=== PATIENT | male | born 1975 | race Caucasian/White ===

== ENCOUNTER → 2017-12-19 | Outpatient (CLI) | payer SELFPAY ==
--- NOTE | 2017-12-19 18:17 | RADIOLOGY REPORT (SQ) ---
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 TECHNIQUE: Static and realtime ji scale imaging of the scrotum and testes. Selected color Doppler and spectral images recorded to document blood flow. LIMITATIONS: Patient has a history of "Testicular tumor", but no further clinical details are provid ed. FINDINGS: RIGHT: TESTICLE: Normal size. Normal echotexture. Normal blood flow. No mass. EPIDIDYMIS: Normal. HYDROCELE OR VARICOCELE: No. HERNIA OR EXTRA-TESTICULAR MASS: No. OTHER: No other significant finding. LEFT: TESTICLE: Heterogeneous and enlarged, 7 x 3.5 x 4.2 cm. Rounded areas within suggests numerous diffu se masses. EPIDIDYMIS: Normal. HYDROCELE OR VARICOCELE: No. HERNIA OR EXTRA-TESTICULAR MASS: No. OTHER: No other significant finding. IMPRESSION: Enlarged abnormal left testicle. Limited clinical history of "Testicular tumor" . TECHNICAL DOCUMENTATION: JOB ID: [id number] [employer]- All Rights Reserved Reading location - IP/workstation name: [email or web address]
--- NOTE | 2017-12-19 18:47 | RADIOLOGY REPORT (SQ) ---
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 TECHNIQUE: CT scan of the abdomen and pelvis performed with intravenous and oral contrast using neela harjit scanning technique with dynamic intravenous contrast injection. Images reviewed with lung, soft t issue, and bone windows. Reconstructed coronal and sagittal MPR images reviewed. Delayed images for e valuation of the urinary system also acquired. All images stored on PACS. All CT scanners at this facility use dose modulation, iterative reconstruction, and/or weight based d osing when appropriate to reduce radiation dose to as low as reasonably achievable (ALARA). [facility]: Dose Right [facility]: CareDose [facility]: Dose Right [facility]: Teradose 4D [facility]: [place] CONTRAST TYPE AND DOSE: contrast/concentration: Isovue 370.00 mg/ml; Total Contrast Delivered: 97.0 ml; Total Saline Delivered: 60.0 ml RENAL FUNCTION: Creatinine 0.9 RADIATION DOSE: CT Rad equipment meets quality standard of care and radiation dose reduction techniq ues were employed. CTDIvol: 18.2 - 19.9 mGy. DLP: 2389 mGy-cm.. LIMITATIONS: Clinical history not provided. FINDINGS: LOWER CHEST: No significant findings. No nodules or infiltrates. LIVER: Normal size. No masses. No dilated ducts. SPLEEN: Normal size. No focal lesions. PANCREAS: No masses. No significant calcifications. No adjacent inflammation or peripancreatic fluid collections. Pancreatic duct not dilated. GALLBLADDER: No identified stones by CT criteria. No inflammatory changes to suggest cholecystitis. ADRENAL GLANDS: No significant masses or asymmetry. RIGHT KIDNEY AND URETER: No solid masses. No significant calcification. No hydronephrosis or hydroure ter. LEFT KIDNEY AND URETER: No solid masses. No significant calcification. No hydronephrosis or hydrouret er. AORTA AND VESSELS: No aneurysm. No dissection. Renal arteries, SMA, celiac without stenosis. RETROPERITONEUM: No retroperitoneal adenopathy, hemorrhage or masses. BOWEL AND PERITONEAL CAVITY: No obstruction. No visualized masses. No free fluid. No inflammatory ch anges or thickening of bowel wall. APPENDIX: Normal. PELVIS: No overt pelvic adenopathy or bladder pathology. Left testis is included in the field of vie w and looks enlarged and slightly dense compared to the right. Known left mass. ABDOMINAL WALL: Small umbilical fat containing hernia. No mass or bowel containing hernia. BONES: No significant or acute findings. OTHER: No other significant finding. IMPRESSION: 1. No acute or suspicious abdominopelvic abnormality. No evidence of abdominopelvic or lung base metastatic disease. 2. Abnormal left testis. This correlates with clinical history of thom ticular tumor and abnormal scrotal ultrasound also obtained at today's visit. Highly concerning for testicular malignancy. TECHNICAL DOCUMENTATION: JOB ID: [id number] Quality ID # [id number]: Final reports with documentation of one or more dose reduction techniques (e.g., Au tomated exposure control, adjustment of the mA and/or kV according to patient size, use of iterative reconstruction technique) 2010 [employer]- All Rights Reserved Reading location - IP/workstation name: [email or web address]
== END ==
LOC: RAD 17:06
PROVIDERS: ATTEND Family Medicine
DX: N44.8 Other noninflammatory disorders of the testis (principal)
CPT/HCPCS: 74177; 76870; 82565; 93976

== ENCOUNTER 2019-11-25 21:05 | Emergency (ER) | payer MEDICAID ==
--- NOTE | 2019-11-25 22:10 | RADIOLOGY REPORT (SQ) ---
EXAM DESCRIPTION: XR CHEST 1 VIEW COMPLETED DATE/TME: 11/25/2019 00:00 CLINICAL INDICATION: 44-year-old male with cough. TECHNIQUE: Single view, AP portable chest was obtained. COMPARISON: 06/16/2011. FINDINGS: Unremarkable cardiac and mediastinal silhouette. Heart size is normal. Cardiac monitoring device overlies the LEFT lower lobe. Lungs are clear without focal opacity, pneumothorax or pleural effusions. The visualized bones are within normal limits. IMPRESSION: No acute cardiopulmonary abnormalities.
[2019-11-25 22:15] LABS: A TYPE INFLUENZA AG NEGATIVE (NEGATIVE); B INFLUENZA AG NEGATIVE (NEGATIVE)
[2019-11-25 22:26] LABS: APPEARANCE,URINE CLEAR; BILIRUBIN,URINE NEGATIVE (NEGATIVE); COLOR,URINE YELLOW; GLUCOSE, URINE NEGATIVE (NEGATIVE); KETONES,URINE NEGATIVE (NEGATIVE); LEUKOCYTE ESTERASE,URINE NEGATIVE (NEGATIVE); NITRITE,URINE NEGATIVE (NEGATIVE); PROTEIN,URINE NEGATIVE (NEGATIVE); URINE SPECIFIC GRAVITY 1.018; UROBILINOGEN,URINE NEGATIVE mg/dL (<2.0)
[2019-11-25 23:55] VITALS: BP 148/97
--- NOTE | 2019-11-27 13:52 | ER Document Report ---
Entered by THA PERKINS SCRIBE 11/25/19 [id number] Acting as scribe for:BOLIVAR MEJIA DO ED General - General Chief Complaint: Flu Symptoms Stated Complaint: FLU LIKE SYMPTOMS Time Seen by Provider: 11/25/19 21:39 Primary Care Provider: HUMZA RANDOLPH MD [Primary Care Provider] - Follow up as needed Information source: Patient Notes: 44-year-old male presents to the emergency department complaining of flu-like symptoms that began 2 weeks ago. Patient states that he has not been feeling well for the past two weeks and has been feeling "feverish" for the past few days. Patient reports arm aches, tremendous fatigue and a dry cough. Patient is unsure of sick contact. Patient lives in [place] and is visiting his children in [place]. TRAVEL OUTSIDE OF THE U[place]S. 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 Past Surgical History: Reports: Hx Testicular Surgery - Left testicle removed due to cancer Review of Systems - Review of Systems Constitutional: See HPI, Fever, Other - Fatigue EENT: No symptoms reported Cardiovascular: No symptoms reported Respiratory: See HPI, Cough Gastrointestinal: No symptoms reported Genitourinary: No symptoms reported Male Genitourinary: No symptoms reported Musculoskeletal: See HPI, Other - Arm muscle aches Skin: No symptoms reported Hematologic/Lymphatic: No symptoms reported Neurological/Psychological: No symptoms reported -: Yes All other systems reviewed and negative Physical Exam - Vital signs Vitals: Temp Pulse Resp BP Pulse Ox 98.6 F 82 18 145/96 H 99 11/25/19 21:31 11/25/19 21:31 11/25/19 21:31 11/25/19 21:31 11/25/19 21:31 - Notes Notes: Physical Exam: General: Alert, appears well. HEENT: Normocephalic. Atraumatic. PERRL. Extraocular movements intact. Oropharyn x clear. Neck: Supple. Non-tender. Respiratory: No respiratory distress. Clear and equal breath sounds bilaterally. Cardiovascular: Regular rate and rhythm. Abdominal: Non-tender. No distension. Normal Bowel Sounds. Obese. Back: No gross abnormalities. Extremities: Moves all four extremities. Upper extremities: Normal inspection. Normal ROM. Lower extremities: Normal inspection. No edema. Normal ROM. Neurological: Normal cognition. AAOx4. Normal speech. Psychological: Normal affect. Normal Mood. Skin: Warm. Dry. Normal color. Course - Re-evaluation Re-evalutation: 11/25/19 22:40 MDM 44 year old male presents after traveling here from [place]. Tremendous fatigue is present and dry cough. Flu test here is negative. He is visiting children and staying here in [place]. Tells me he will be here another "week or so." He says he has a very flexible job. Discussed self quarantine and he expressed understanding. - Vital Signs Vital signs: Temp Pulse Resp BP Pulse Ox 98.6 F 82 18 145/96 H 99 11/25/19 21:31 11/25/19 21:31 11/25/19 21:31 11/25/19 21:31 11/25/19 21:31 - Diagnostic Test Radiology reviewed: Image reviewed, Reports reviewed Discharge - Discharge Clinical Impression: Viral respiratory illness, Myalgia Condition: Good Disposition: HOME, SELF-CARE Instructions: Acetaminophen, Fever ([facility]), Upper Respiratory Illness ([facility]), Viral Syndrome ([facility]) Additional Instructions: Self quarantine for 5 days or until you hear from public health regarding the results of your test. Take tylenol for pain. Return here for increasing shortness of breath or other problems or concerns. Forms: Elevated Blood Pressure, Return to Work Referrals: HUMZA RANDOLPH MD [Primary Care Provider] - Follow up as needed I personally performed the services described in the documentation, reviewed and edited the documentation which was dictated to the scribe in my presence, and it accurately records my words and actions.
== END 2019-11-25 23:54 | disposition home or self-care (01) ==
LOC: ER 21:05
DX: Z20.828 Contact with and (suspected) exposure to other viral communicable diseases (principal); M79.10 Myalgia, unspecified site; R50.9 Fever, unspecified; B34.9 Viral infection, unspecified; R53.83 Other fatigue; F17.210 Nicotine dependence, cigarettes, uncomplicated
CPT/HCPCS: 36415; 71045; 81001; 87070; 87077; 87635; 87804; 87880; 99283

== ENCOUNTER 2020-05-22 11:38 | Emergency (ER) | payer SELFPAY ==
[2020-05-22 11:47] VITALS: BP 148/104
--- NOTE | 2020-05-22 11:51 | ER Document Report ---
ED General - General Chief Complaint: High Blood Pressure Stated Complaint: HIGH BLOOD PRESSURE Time Seen by Provider: 05/22/20 11:44 Notes: Patient presents with intermittent headache and dizziness for the last month and a half. His pressures been going up to as high as 215/140. He says he is taking the blood pressure measurement every hour on his home cuff. 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 No chest pain unilateral neuro symptoms or severe headache. Pressure 148 at triage. TRAVEL OUTSIDE OF THE U[place]S. 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 Past Surgical History: Reports: Hx Testicular Surgery - Left testicle removed due to cancer Review of Systems - Review of Systems Notes: REVIEW OF SYSTEMS GEN: Denies fever, chills, weight loss ENT: Denies sore throat, nasal discharge, ear pain EYES: Denies blurry vision, eye pain, discharge CV: Denies chest pain, palpitations, edema RESP: Denies cough, shortness of breath, wheezing GI: Denies abdominal pain, nausea, vomiting, diarrhea MSK: Denies joint pain/swelling, edema, SKIN: Denies rash, skin lesions LYMPH: Denies swollen glands/lymph nodes NEURO: Dizziness PHYSICAL EXAMINATION General: No acute distress, well-nourished Head: Atraumatic, normocephalic ENT: Mouth normal, oropharynx moist, no exudates or tonsillar enlargement Eyes: Conjunctiva normal, pupils equal, lids normal Neck: No JVD, supple, no guarding CVS: Normal rate, regular rhythm, no murmurs Resp: No resp distress, equal and normal breath sounds bilaterally GI: Nondistended, soft, no tenderness to palpation, no rebound or guarding Ext: No deformities, no edema, normal range of motion in upper and lower ext Back: No CVA or midline TTP Skin: No rash, warm Lymphatic: No lymphadeopathy noted Neuro: Awake, alert. Face symmetric. GCS 15. Gait normal speech normal strength and sensation all 4 extremities. Physical Exam - Vital signs Vitals: Temp Pulse Resp BP Pulse Ox 98.2 F 68 18 148/104 H 96 05/22/20 11:44 05/22/20 11:44 05/22/20 11:44 05/22/20 11:44 05/22/20 11:44 Course - Re-evaluation Re-evalutation: 05/22/20 12:00 Minimally symptomatic untreated hypertension secondary to noncompliance Does not know the dose or the medication he was on before We will place on low moderate dose of Norvasc for temporary blood pressure control while awaiting primary care to establish cholesterol blood pressure control diabetes screening etc. No need for work-up today. I have discussed with the patient there likely diagnosis, aftercare plan, follow-up plans and my usual and customary return precautions. They verbalized understanding of this. - Vital Signs Vital signs: Temp Pulse Resp BP Pulse Ox 98.2 F 68 18 148/104 H 96 05/22/20 11:44 05/22/20 11:44 05/22/20 11:44 05/22/20 11:44 05/22/20 11:44 Discharge - Discharge Clinical Impression: High blood pressure Qualifiers: Hypertension type: unspecified Qualified Code(s): I10 - Essential (primary) hypertension Condition: Good Disposition: HOME, SELF-CARE Instructions: High Blood Pressure ([facility]) Additional Instructions: We discussed her blood pressures going up and down in a way that can be dangerous. Please do not take it every hour but you may measure it twice a day and keep a log to show to your primary care. I am going to refer you to a local primary care doctor would also like you to follow-up with someone when you get home to [place]. Return to ER for chest pain headache or strokelike symptoms including weakness on one side the other, trouble speaking or walking. Prescriptions: Amlodipine Besylate [Norvasc 10 mg Tablet] 10 mg PO DAILY #30 tablet Referrals: [facility] [Outside] - Follow up in 1 week
== END 2020-05-22 12:09 | disposition home or self-care (01) ==
LOC: ER 11:38
DX: I10 Essential (primary) hypertension (principal); R51 Headache; R42 Dizziness and giddiness
CPT/HCPCS: 99283

== ENCOUNTER 2020-06-07 18:58 | Inpatient (IN) | payer MEDICAID ==
--- NOTE | 2020-06-07 20:17 | ER Document Report ---
ED Medical Screen (RME) - General Chief Complaint: Breathing Difficulty Stated Complaint: DIFFICULTY BREATING Time Seen by Provider: 06/07/20 20:05 TRAVEL OUTSIDE OF THE U[place]S. IN LAST 30 DAYS: No - HPI Notes: 06/07/20 20:14 45-year-old male to the emergency department with complaints of acute onset of shortness of breath this afternoon just prior to arrival. 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 He states that he decided to get in his truck and come to the emergency department. He feels like the breathing has gotten a little bit better and he can actually get 3 or 4 words at a time. However he feels still pretty short of breath. He states his chest is tight and he has little bit of chest pain. He has a history of hypertension and asthma. Never been intubated or hospitalized for his asthma. He does not have an albuterol inhaler for rescue. He states sometimes his asthma gets worse when he comes down here. He denies any fevers, chills, possible COVID exposures. He has never had a history of congestive heart failure. However he does have a loop monitor because about a year ago he is experiencing episodes of syncope. On brief exam he has expiratory rales. No destinee wheezing. He is short of breath and can speak about 3-4 words before needing to catch his breath. He has no pitting edema to his legs. He is not diaphoretic. I advised charge nurse of the patient and she states he can go to bed 18. I performed a brief medical screening exam on the patient determined that the patient needs further evaluation and management by main side provider. I have placed initial orders to help expedite care. 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
[2020-06-07 21:05] LABS: ABSOLUTE BASOPHILS # (AUTO) 0.1 10^3/uL (0.0-0.2); ABSOLUTE EOSINOPHILS # (AUTO) 0.4 10^3/uL (0.0-0.6); ABSOLUTE LYMPHOCYTES (AUTO) 2.3 10^3/uL (0.5-4.7); ABSOLUTE MONOCYTES (AUTO) 1.1 10^3/uL (0.1-1.4); ABSOLUTE NEUT (AUTO) 11.8 10^3/uL (1.7-8.2); BASOPHILS % (AUTO) 0.9 % (0-2); EOSINOPHILS % (AUTO) 2.6 % (0-6); HEMATOCRIT 45.9 % (37.9-51.0); HEMOGLOBIN 16.1 g/dL (13.5-17.0); LYMPHOCYTES % (AUTO) 14.6 % (13-45); MEAN CORPUSCULAR HEMOGLOBIN 30.1 pg (27.0-33.4); MEAN CORPUSCULAR VOLUME 86 fl (80-97); MONOCYTES % (AUTO) 7.2 % (3-13); PLATELET COUNT 243 10^3/uL (150-450); RED BLOOD COUNT 5.34 10^6/uL (4.35-5.55); RED CELL DISTRIBUTION WIDTH 12.7 % (11.5-14.0); SEGMENTED NEUTROPHILS % (AUTO) 74.7 % (42-78); TOTAL CELLS COUNTED % (AUTO) 100 %; WHITE BLOOD COUNT 15.9 10^3/uL (4.0-10.5)
[2020-06-07 21:13] LABS: INTERNATIONAL RATION (INR) 0.96
[2020-06-07 21:14] LABS: PARTIAL THROMBOPLASTIN TIME 28.9 SEC (23.5-35.8)
--- NOTE | 2020-06-07 21:16 | RADIOLOGY REPORT (SQ) ---
XR CHEST 1 VIEW HISTORY: Chest pain. Shortness of breath. COMPARISON: 11/25/2019 FINDINGS: The heart size is within normal limits. There is no pulmonary vascular congestion. No consolidation, pleural effusion, or pneumothorax is seen. No acute bony findings are seen. IMPRESSION: No evidence of acute cardiopulmonary disease.
[2020-06-07 21:35] LABS: ALBUMIN 4.8 g/dL (3.5-5.0); ALKALINE PHOSPHATASE 85 U/L (38-126); ANION GAP 13 (5-19); ASPARTATE AMINO TRANSFERASE 37 U/L (17-59); BILIRUBIN,DIRECT 0.3 mg/dL (0.0-0.4); BILIRUBIN,TOTAL 0.5 mg/dL (0.2-1.3); BLOOD UREA NITROGEN 18 mg/dL (7-20); CALCIUM 10.2 mg/dL (8.4-10.2); CARBON DIOXIDE 25 mmol/L (22-30); CHLORIDE 105 mmol/L (98-107); GLUCOSE 85 mg/dL (75-110); POTASSIUM 4.4 mmol/L (3.6-5.0); TOTAL PROTEIN 8.1 g/dL (6.3-8.2)
[2020-06-07 21:46] LABS: TROPONIN I 0.078 ng/mL
--- NOTE | 2020-06-07 21:49 | EKG REPORT ---
SEVERITY:- ABNORMAL ECG - SINUS TACHYCARDIA MULTIPLE ATRIAL PREMATURE COMPLEXES : Confirmed by: Flaquita Fritz MD 07-Jun-2020 21:48:18
[2020-06-07] MEDS ORDERED: ASPIRIN 81 MG TABLET, CHEWABLE PO ONE (21:55)
[2020-06-07] MEDS ORDERED: LORAZEPAM INJ 2 MG/1 ML VIAL IV ONE (21:55)
[2020-06-07] MEDS ORDERED: NITROGLYCERIN/D5W 50 MG/250 ML RTUINJ IV PRN (21:56)
--- NOTE | 2020-06-07 22:01 | ER Document Report ---
ED General - General Chief Complaint: Shortness Of Breath Stated Complaint: DIFFICULTY BREATING Time Seen by Provider: 06/07/20 20:05 Mode of Arrival: Ambulatory Information source: Patient Notes: ED Medical Screen ([facility] notes) - General Chief Complaint: Breathing Difficulty Stated Complaint: DIFFICULTY BREATING Time Seen by Provider: 06/07/20 20:05 TRAVEL OUTSIDE OF THE [place] IN LAST 30 DAYS: No - HPI Notes: 06/07/20 20:14 45-year-old male to the emergency department with complaints of acute onset of shortness of breath this afternoon just prior to arrival. 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 He states that he decided to get in his truck and come to the emergency department. He feels like the breathing has gotten a little bit better and he can actually get 3 or 4 words at a time. However he feels still pretty short of breath. He states his chest is tight and he has little bit of chest pain. He has a history of hypertension and asthma. Never been intubated or hospitalized for his asthma. He does not have an albuterol inhaler for rescue. He states sometimes his asthma gets worse when he comes down here. He denies any fevers, chills, possible COVID exposures. He has never had a history of congestive heart failure. However he does have a loop monitor because about a year ago he is experiencing episodes of syncope. On brief exam he has expiratory rales. No destinee wheezing. He is short of breath and can speak about 3-4 words before need ing to catch his breath. He has no pitting edema to his legs. He is not diaphoretic. I advised charge nurse of the patient and she states he can go to bed 18. I performed a brief medical screening exam on the patient determined that the patient needs further evaluation and management by main side provider. I have placed initial orders to help expedite care. 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 He try to get into the shade but continued to have shortness of breath and diffuse chest pain. 2 days ago he was fishing using a net. Chest pain was quite severe. Patient reports he had 158/113 blood pressure earlier this morning and he took some blood pressure medication. He arrives today with a low blood pressure. He is a non-smoker but drinks Eleuterio [place] alcohol with a Coca-Cola and when he is at [employer] he drinks wine. He reports both mother and father are from heart problems. He reports he has some mild edema to both legs. TRAVEL OUTSIDE OF THE U[place]S. IN LAST 30 DAYS: No - HPI Onset: This afternoon Onset/Duration: Sudden, Persistent Quality of pain: Achy Severity: Mild Pain Level: 2 Associated symptoms: Shortness of breath, Sweating, Weakness Exacerbated by: Movement, Coughing, Deep breathing Relieved by: Denies Similar symptoms previously: Yes Recently seen / treated by doctor: No - Related Data Allergies/Adverse Reactions: No Known Allergies Allergy (Unverified 06/07/20 20:15) Past Medical History - General Information source: Patient - Social History Smoking Status: Former Smoker Cigarette use (# per day): No Chew tobacco use (# tins/day): No Smoking Education Provided: No Frequency of alcohol use: Occasional - Eleuterio [place] with Coca[employer]Cola on a periodic basis and when he goes to [employer] he drinks wine Family History: Reviewed & Not Pertinent Patient has suicidal ideation: No Patient has homicidal ideation: No - Past Medical History Cardiac Medical History: Reports: Hx Hypertension Pulmonary Medical History: Reports: Hx Asthma Malignancy Medical History: 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 Past Surgical History: Reports: Hx Testicular Surgery - Left testicle removed due to cancer Review of Systems - Review of Systems Constitutional: See HPI, Malaise, Weakness EENT: No symptoms reported Cardiovascular: See HPI, Chest pain, Dyspnea, Dizziness, Lightheaded, Edema Respiratory: No symptoms reported Gastrointestinal: No symptoms reported Genitourinary: No symptoms reported Male Genitourinary: No symptoms reported Musculoskeletal: No symptoms reported Skin: No symptoms reported Hematologic/Lymphatic: No symptoms reported Neurological/Psychological: See HPI, Weakness Physical Exam - Vital signs Vitals: Temp Pulse Resp BP Pulse Ox 98.4 F 122 H 20 143/90 H 97 06/07/20 19:04 06/07/20 19:04 06/07/20 19:04 06/07/20 19:04 06/07/20 19:04 Interpretation: Hypertensive, Tachypneic - General General appearance: Anxious - HEENT Head: Normocephalic, Atraumatic Eyes: Normal Pupils: PERRL Sinus: Normal Nasal: Normal Mouth/Lips: Normal Mucous membranes: Normal Pharynx: Normal Neck: Normal - Respiratory Respiratory status: Respiratory distress, Labored, Tachypnea Chest status: Tender - Tender sternal area on palpation Breath sounds: Normal Chest palpation: Normal - Cardiovascular Rhythm: Tachycardia Heart sounds: Normal auscultation Murmur: No - Abdominal Inspection: Normal Distension: No distension Bowel sounds: Normal Tenderness: Nontender Organomegaly: No organomegaly - Rectal Prostate: Other - deferred - Genitourinary Scrotum: Other - deferred - Back Back: Normal - Extremities General upper extremity: Normal inspection, Nontender, Normal color, Normal ROM, Normal temperature General lower extremity: Normal inspection, Nontender, Normal color, Normal ROM, Normal temperature, Normal weight bearing. No: Darío's sign - Neurological Neuro grossly intact: Yes Cognition: Normal Orientation: AAOx4 Jonathan Coma Scale Eye Opening: Spontaneous [place] Coma Scale Verbal: Oriented Jonathan Coma Scale Motor: Obeys Commands [place] Coma Scale Total: 15 Speech: Normal Motor strength normal: LUE, RUE, LLE, RLE Sensory: Normal - Psychological Associated symptoms: Anxious - Skin Skin Temperature: Warm Skin Moisture: Dry Skin Color: Normal Course - Vital Signs Vital signs: Temp Pulse Resp BP Pulse Ox 98.4 F 109 H 26 H 126/93 H 99 06/07/20 19:04 06/07/20 20:12 06/07/20 21:01 06/07/20 21:01 06/07/20 21:01 - Laboratory Result Diagrams: 06/07/20 20:50 06/07/20 20:50 Laboratory results interpreted by me: 06/07/20 06/07/20 06/07/20 20:50 20:50 20:50 WBC 15.9 H Absolute Neuts (auto) 11.8 H Magnesium 2.4 H TSH 5.78 H Urine Protein Urine Ketones Urine Urobilinogen 06/07/20 23:37 WBC Absolute Neuts (auto) Magnesium TSH Urine Protein 100 H Urine Ketones TRACE H Urine Urobilinogen 4.0 H - Diagnostic Test Radiology reviewed: Reports reviewed Radiology results interpreted by me: 06/08/20 00:39 CT scan with no PE inconclusive but patient has right lower lobe infiltrate. - EKG Interpretation by De EKG shows normal: Sinus rhythm Rate: Tachycardia Rhythm: NSR - Multiple atrial premature complexes and sinus tachycardia [address] elevation no ST depression no T wave depression no T wave elevation and axis within normal limits and this was read by myself. Critical Care Note - Critical Care Note Comments: I discussed with Dr. Bass at 00 40 for possible admission. He advised can test on this patient. When he saw patient at 00 50 he advised me that the patient had only been exposed to the islam people today. He Dr Bass therefore advised not doing the coronavirus COVID 19 test. Discharge - Discharge Clinical Impression: Chest pain at rest, SOB (shortness of breath), Tachycardia, Elevated troponin, Thyroid disease, COVID-19 virus test result unknown Pneumonia Qualifiers: Pneumonia type: due to unspecified organism Laterality: right Lung location: lower lobe of lung Qualified Code(s): J18.9 - Pneumonia, unspecified organism Condition: Good Disposition: ADMITTED INPATIENT Admitting Provider: Aguilar (Hospitalist) Unit Admitted: Medical Floor Additional Instructions: Transfer patient to medical floor
[2020-06-07 22:57] LABS: FREE T4 (FREE THYROXINE) 1.04 ng/dL (0.78-2.19)
[2020-06-07 23:11] LABS: THYROID STIMULATING HORMONE 5.78 uIU/mL (0.47-4.68)
[2020-06-07 23:53] LABS: AMORPHOUS SEDIMENT,URINE TRACE /HPF; APPEARANCE,URINE CLOUDY; BILIRUBIN,URINE NEGATIVE (NEGATIVE); COLOR,URINE AMBER; GLUCOSE, URINE NEGATIVE (NEGATIVE); KETONES,URINE TRACE mg/dL (NEGATIVE); LEUKOCYTE ESTERASE,URINE NEGATIVE (NEGATIVE); NITRITE,URINE NEGATIVE (NEGATIVE); PROTEIN,URINE 100 mg/dL (NEGATIVE); URINE SPECIFIC GRAVITY 1.032
[2020-06-08 00:08] LABS: URINE AMPHETAMINES SCREEN NEGATIVE; URINE BARBITURATES SCREEN NEGATIVE; URINE BENZODIAZEPINES SCREEN NEGATIVE; URINE COCAINE SCREEN NEGATIVE; URINE MARIJUANA (THC) SCREEN NEGATIVE; URINE METHADONE SCREEN NEGATIVE; URINE PHENCYCLIDINE SCREEN NEGATIVE
--- NOTE | 2020-06-08 00:18 | RADIOLOGY REPORT (SQ) ---
CLINICAL INDICATION: cp sob. . TECHNIQUE: CT arteriography was obtained of the chest with multiplanar MIP and/or 3-D angiographic reconstructions. This exam was performed according to our departmental dose-optimization program, which includes automated exposure control, adjustment of the mA and/or kV according to patient size and/or use of iterative reconstruction techniques. COMPARISON: None. CORRELATION: None. FINDINGS: Dilute and inadequate contrast bolus. Average Hounsfield unit measurement within main pulmonary artery segment of 232. Artifact from venous opacification. There is a dilute contrast bolus. Opacification of the pulmonary vasculature is in adequate. Thoracic aorta is of normal caliber. The heart is of normal size. No pericardial effusion. No bulky mediastinal adenopathy. The lungs demonstrate mild fluffy alveolar space disease right lung base the posterior costophrenic angle. Atelectasis at both lung bases. Perhaps scar. No effusion. No pneumothorax. Visualized abdominal contents are unremarkable. Visualized bones are unremarkable. IMPRESSION: Dilute contrast bolus. Examination is nondiagnostic for evaluation of pulmonary embolus. Mild fluffy alveolar space disease right lung base, perhaps infectious inflammatory. .
[2020-06-08] MEDS ORDERED: AZITHROMYCIN INJ 500 MG VIAL IV ONE (00:40)
[2020-06-08] MEDS ORDERED: CEFTRIAXONE INJ 1000 MG VIAL IV ONE (00:40)
[2020-06-08] MEDS ORDERED: HYDRALAZINE HCL INJ/PF 20 MG/1 ML SDV IV PRN (02:04)
[2020-06-08] MEDS ORDERED: ONDANSETRON HCL INJ/PF 4 MG/2 ML SDV IV PRN (02:08)
[2020-06-08] MEDS ORDERED: PROMETHAZINE HCL INJ 25 MG/1 ML VIAL IV PRN (02:08)
[2020-06-08] MEDS ORDERED: TEMAZEPAM 7.5 MG CAPSULE PO PRN (02:08)
[2020-06-08] MEDS ORDERED: ACETAMINOPHEN 325 MG TABLET PO PRN (02:08)
[2020-06-08] MEDS ORDERED: IPRATROPIUM/ALBUTEROL 0.5-2.5 MG/3 ML AMPUL NEB PRN (02:08)
--- NOTE | 2020-06-08 02:32 | PDOC H&P ---
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 Unfortunately patient is very poor historian he is stating that he was volunteering for [employer] today and he noted that his shortness of breath was getting worse to the point that he could not talk in complete sentences, and did not get better with rest, he was also having diffuse nonpruritic chest pain. He is stating that he has had shortness of breath, and wheezing for several years and went to the doctor and was given some medication that he does not take anymore, he denies ever having had any PFTs or for asthma, when asked if he has asthma or COPD says he does not know. He is also stating that he has chronic chest pain, dyspnea on exertion, orthopnea and paroxysmal nocturnal dyspnea and pillow orthopnea, lower extremity swelling and he has been using several pillows for the last couple of years, but he denies having any CAD, he does state that he has a strong family history of CAD on mother and father side. In ED a chest x-ray was negative, a follow-up CTA was inconclusive for PE but showed mild fluffy alveolar airspace disease in the right lung base likely infectious. Also noted to have leukocytosis and elevated troponins. Patient denies any exposure to anybody with upper respiratory infection or being exposed to anybody with COVID-19 infection, he is stating that this was his first time that he was volunteering for the [employer], he states that he uses facial covering when required. He denies any fever, chills, nausea, vomiting, abdominal pain, diarrhea, constipation or any urinary symptoms. Past Medical History Cardiac Medical History: Reports: Hypertension Pulmonary Medical History: Reports: Asthma Social History Smoking Status: Former Smoker Family History Family History: Reviewed & Not Pertinent Parental Family History Reviewed: Yes Children Family History Reviewed: Yes Sibling(s) Family History Reviewed.: Yes Medication/Allergy Home Medications: Amlodipine Besylate [Norvasc 10 mg Tablet] 10 mg PO DAILY #30 tablet 05/22/20 Allergies/Adverse Reactions: No Known Allergies Allergy (Unverified 06/07/20 20:15) Physical Exam Vital Signs: Temp Pulse Resp BP Pulse Ox 98.4 F 109 H 26 H 126/93 H 99 06/07/20 19:04 06/07/20 20:12 06/07/20 21:01 06/07/20 21:01 06/07/20 21:01 Intake & Output 06/06/20 06/07/20 06/08/20 06:59 06:59 06:59 Weight 119.9 kg Results Laboratory Results: 06/07/20 20:50 06/07/20 20:50 06/07/20 06/07/20 06/07/20 20:50 20:50 20:50 WBC 15.9 H RBC 5.34 Hgb 16.1 Hct 45.9 MCV 86 MCH 30.1 MCHC 35.0 RDW 12.7 Plt Count 243 Seg Neutrophils % 74.7 Sodium 143.3 Potassium 4.4 Chloride 105 Carbon Dioxide 25 Anion Gap 13 BUN 18 Creatinine 1.18 Est GFR ( Amer) > 60 Glucose 85 Calcium 10.2 Magnesium 2.4 H Total Bilirubin 0.5 AST 37 Alkaline Phosphatase 85 Total Protein 8.1 Albumin 4.8 TSH 5.78 H Free T4 1.04 Urine Color Urine Appearance Urine pH Ur Specific [place] Urine Protein Urine Glucose (UA) Urine Ketones Urine Blood Urine Nitrite Ur Leukocyte Esterase Urine WBC (Auto) Urine RBC (Auto) 06/07/20 23:37 WBC RBC Hgb Hct MCV MCH MCHC RDW Plt Count Seg Neutrophils % Sodium Potassium Chloride Carbon Dioxide Anion Gap BUN Creatinine Est GFR ( Amer) Glucose Calcium Magnesium Total Bilirubin AST Alkaline Phosphatase Total Protein Albumin TSH Free T4 Urine Color ANDRADE Urine Appearance CLOUDY Urine pH 5.0 Ur Specific [place] 1.032 Urine Protein 100 H Urine Glucose (UA) NEGATIVE Urine Ketones TRACE H Urine Blood NEGATIVE Urine Nitrite NEGATIVE Ur Leukocyte Esterase NEGATIVE Urine WBC (Auto) 4 Urine RBC (Auto) 1 06/07/20 20:50 Troponin I 0.078 NT-Pro-B Natriuret Pep 25 Impressions: Chest X-Ray 06/07/20 20:13 IMPRESSION: No evidence of acute cardiopulmonary disease. Chest/Abdomen CTA 06/07/20 21:57 IMPRESSION: Dilute contrast bolus. Examination is nondiagnostic for evaluation of pulmonary embolus. Mild fluffy alveolar space disease right lung base, perhaps infectious inflammatory. . Assessment and Plan - Diagnosis (1) Pneumonia Qualifiers: Pneumonia type: due to unspecified organism Laterality: right Lung location: lower lobe of lung Qualified Code(s): J18.9 - Pneumonia, unspecified organism Is this a current diagnosis for this admission?: Yes Plan: Likely community-acquired caused by gram-positives including Streptococcus pneumonia. Denies exposure to anybody with COVID-19 infection. Patient is stating that he wears masks when required and he was volunteering for discharge for the first time yesterday. Empiric IV antibiotics, sputum culture, blood culture, incentive spirometry, flutter valve and incentive spirometry. Follow-up sputum and blood culture. (2) Elevated troponin Is this a current diagnosis for this admission?: Yes Plan: Unfortunately very poor historian. Reports intermittent chest pain. Troponin 0.078. EKG no acute changes. Endorses family history of CAD however denies any personal history of CAD but he states that he has been having chronic intermittent chest pain, dyspnea on exertion, orthopnea, paroxysmal nocturnal pillow orthopnea and bilateral lower extremity swelling. Admit to telemetry, antiplatelets, beta-blockers, statins, lipid panel, hemoglobin A1c, sublingual nitroglycerin, IV morphine. We will consult cardiology for possible stress for further risk stratification. (3) Chronic respiratory failure Qualifiers: Respiratory failure complication: hypoxia Qualified Code(s): J96.11 - Chronic respiratory failure with hypoxia Is this a current diagnosis for this admission?: Yes Plan: Patient endorses history of chronic shortness of breath, chest pain and dyspnea on exertion and occasional wheezing. Not sure if he asthma, but has states that he was seen by for his shortness of breath and was given some medication but is stating that no PFTs or any other pulmonary testing was done. Not sure patient has history of asthma or COPD or his chronic shortness of breath and dyspnea on exertion could be explained due to underlying undiagnosed cardiovascular disease. Continue duo nebs, LABA, ICS, incentive spirometry, LABA, flutter valve. Outpatient PCP and pulmonology follow-up. (4) Hypertension Qualifiers: Hypertension type: essential hypertension Qualified Code(s): I10 - Essential (primary) hypertension Is this a current diagnosis for this admission?: Yes Plan: Resume home meds, PRN beta-blockers and IV hydralazine, adjust meds as needed. Outpatient PCP follow-up. (5) Morbid obesity Is this a current diagnosis for this admission?: Yes Plan: BMI 42.7. Diet and lifestyle modification recommended. Will obtain TSH, hemoglobin A1c and lipid panel. - Time Time Spent with patient: 35 or more minutes Medications reviewed and adjusted accordingly: Yes Anticipated Discharge Disposition: Home, Self Care Anticipated Discharge Timeframe: within 72 hours
[2020-06-08 04:37] LABS: CHOLESTEROL 142.28 mg/dL (0-200); TRIGLYCERIDES 84 mg/dL (<150)
[2020-06-08 04:48] LABS: DIRECT LDL 93 mg/dL (<100)
[2020-06-08 04:54] LABS: FREE T4 (FREE THYROXINE) 1.04 ng/dL (0.78-2.19)
[2020-06-08 05:08] LABS: THYROID STIMULATING HORMONE 4.38 uIU/mL (0.47-4.68)
[2020-06-08] MEDS: IPRATROPIUM/ALBUTEROL 0.5-2.5 MG/3 ML AMPUL NEB SCH ×3 (08:04→20:58)
[2020-06-08] MEDS: ENOXAPARIN SODIUM INJ 40 MG/0.4 ML DISP.SYRIN SUBCUT SCH (09:38)
[2020-06-08] MEDS: FAMOTIDINE 20 MG TABLET PO SCH ×2 (09:39→21:20)
[2020-06-08] MEDS: DOCUSATE SODIUM 100 MG CAPSULE PO SCH (09:39)
[2020-06-08] MEDS: METOPROLOL TARTRATE 25 MG TABLET PO SCH ×2 (09:39→21:19)
[2020-06-08] MEDS: AZITHROMYCIN 250 MG TABLET PO SCH (09:40)
--- NOTE | 2020-06-08 10:58 | PDOC PROGRESS REPORT ---
Subjective Progress Note for:: 06/08/20 Subjective:: DAMIEN THOMSON JR is a 45 year old male Past medical history of testicular cancer status post orchiectomy, questionable asthma, hypertension, morbid obesity who was admitted early this morning for sudden onset dyspnea with questionable pneumonia versus CHF. Patient was seen on morning rounds. He was found lying in bed, comfortably, on room air. He was lying right lateral with head of bed elevated approximately 30 degrees. He reports that his breathing is much improved; noted to be speaking in full sentences. He does admit to some slight shortness of breath when ambulatory to the restroom, although, patient states that this is his norm. He denies fever, chills chest discomfort, palpitations, cough, abdominal pain, nausea, vomiting, and diarrhea. No known sick contacts. Patient has no questions or concerns at this time. No concerns per nursing. Reason For Visit: ACUTE RESPIRATORY FAILUREWITH HYPOXIA,ELEVATED Physical Exam Vital Signs: Temp Pulse Resp BP Pulse Ox 97.2 F 82 18 140/86 H 97 06/08/20 07:25 06/08/20 08:04 06/08/20 08:04 06/08/20 07:25 06/08/20 08:04 Intake & Output 06/07/20 06/08/20 06/09/20 06:59 06:59 06:59 Weight 119.9 kg General appearance: PRESENT: no acute distress, cooperative, morbidly obese, well-developed, well-nourished Head exam: PRESENT: atraumatic, normocephalic Eye exam: PRESENT: conjunctiva pink, EOMI, PERRLA. ABSENT: scleral icterus Mouth exam: PRESENT: moist, tongue midline Respiratory exam: PRESENT: rhonchi - Right base, symmetrical, unlabored, other - Room air. ABSENT: rales, wheezes Cardiovascular exam: PRESENT: RRR. ABSENT: diastolic murmur, rubs, systolic murmur Pulses: PRESENT: normal dorsalis pedis pul Vascular exam: PRESENT: normal capillary refill GI/Abdominal exam: PRESENT: other - Rotund Extremities exam: PRESENT: full ROM, pedal edema - Trace bilaterally. ABSENT: calf tenderness, clubbing Musculoskeletal exam: PRESENT: ambulatory Neurological exam: PRESENT: alert, awake, oriented to person, oriented to place, oriented to time, oriented to situation, CN II-XII grossly intact. ABSENT: motor sensory deficit Psychiatric exam: PRESENT: appropriate affect, normal mood. ABSENT: homicidal ideation, suicidal ideation Skin exam: PRESENT: dry, intact, warm. ABSENT: cyanosis, rash Results Laboratory Results: 06/07/20 20:50 06/07/20 20:50 06/07/20 06/07/20 06/07/20 20:50 20:50 20:50 WBC 15.9 H RBC 5.34 Hgb 16.1 Hct 45.9 MCV 86 MCH 30.1 MCHC 35.0 RDW 12.7 Plt Count 243 Seg Neutrophils % 74.7 Sodium 143.3 Potassium 4.4 Chloride 105 Carbon Dioxide 25 Anion Gap 13 BUN 18 Creatinine 1.18 Est GFR ( Amer) > 60 Glucose 85 Calcium 10.2 Magnesium 2.4 H Total Bilirubin 0.5 AST 37 Alkaline Phosphatase 85 Total Protein 8.1 Albumin 4.8 Triglycerides Cholesterol LDL Cholesterol Direct VLDL Cholesterol HDL Cholesterol TSH 5.78 H Free T4 1.04 Urine Color Urine Appearance Urine pH Ur Specific [place] Urine Protein Urine Glucose (UA) Urine Ketones Urine Blood Urine Nitrite Ur Leukocyte Esterase Urine WBC (Auto) Urine RBC (Auto) 06/07/20 06/08/20 06/08/20 23:37 03:37 03:37 WBC RBC Hgb Hct MCV MCH MCHC RDW Plt Count Seg Neutrophils % Sodium Potassium Chloride Carbon Dioxide Anion Gap BUN Creatinine Est GFR ( Amer) Glucose Calcium Magnesium Total Bilirubin AST Alkaline Phosphatase Total Protein Albumin Triglycerides 84 Cholesterol 142.28 LDL Cholesterol Direct 93 VLDL Cholesterol 17.0 HDL Cholesterol 31 L TSH 4.38 Free T4 1.04 Urine Color ANDRADE Urine Appearance CLOUDY Urine pH 5.0 Ur Specific [place] 1.032 Urine Protein 100 H Urine Glucose (UA) NEGATIVE Urine Ketones TRACE H Urine Blood NEGATIVE Urine Nitrite NEGATIVE Ur Leukocyte Esterase NEGATIVE Urine WBC (Auto) 4 Urine RBC (Auto) 1 06/07/20 06/08/20 20:50 03:37 Troponin I 0.078 0.042 NT-Pro-B Natriuret Pep 25 Impressions: Chest X-Ray 06/07/20 20:13 IMPRESSION: No evidence of acute cardiopulmonary disease. Chest/Abdomen CTA 06/07/20 21:57 IMPRESSION: Dilute contrast bolus. Examination is nondiagnostic for evaluation of pulmonary embolus. Mild fluffy alveolar space disease right lung base, perhaps infectious inflammatory. . Assessment and Plan - Diagnosis (1) Pneumonia Qualifiers: Pneumonia type: due to unspecified organism Laterality: right Lung location: lower lobe of lung Qualified Code(s): J18.9 - Pneumonia, unspecified organism Is this a current diagnosis for this admission?: Yes Plan: Likely community-acquired caused by gram-positives including Streptococcus pneumonia. Denies exposure to anybody with COVID-19 infection. CTA chest revealed small right lower lobe consolidation; possibly infectious. Patient is afebrile, WBCs 15, with complaints of increased shortness of breath and nonproductive cough. COVID pending. Blood cultures pending. Sputum cultures pending Patient is provided supplemental oxygen as needed maintain saturations greater than 89%. Patient is empirically placed on ceftriaxone and azithromycin. Scheduled and as needed nebulizer treatments. Pulmonary toilet is encouraged with incentive spirometer, flutter valve, early ambulation. (2) Hypertensive urgency Is this a current diagnosis for this admission?: Yes Plan: Reports intermittent chest pain; possibly related to uncontrolled hypertension. Noted to have blood pressure 166/106 overnight. Troponin are trending down; 0.078-> 0.042 EKG no acute changes. Continue home dose amlodipine. Have started metoprolol 12.5 mg twice daily. Daily aspirin and statin therapy. IV hydralazine as needed. Blood pressure control. Cardiac diet education. (3) Elevated troponin Is this a current diagnosis for this admission?: Yes Plan: Unfortunately very poor historian. Reports intermittent chest pain; possibly related to uncontrolled hypertension. Noted to have blood pressure 166/106 overnight. Troponin are trending down; 0.078-> 0.042 EKG no acute changes. Endorses family history of CAD however denies any personal history of CAD but he states that he has been having chronic intermittent chest pain, dyspnea on exertion, orthopnea, paroxysmal nocturnal pillow orthopnea and bilateral lower extremity swelling. Lipid panel overall acceptable. Thyroid panel normal. A1c 5.3%. Admit to telemetry Antiplatelets, beta-blockers, statins, sublingual nitroglycerin as needed. Discussed with cardiology; no evidence of ACS or acute CHF exacerbation at this time. Appropriate for outpatient follow-up. (4) Morbid obesity Is this a current diagnosis for this admission?: Yes Plan: BMI 42.7. Lifestyle modification dietary discretion are advised. (5) SOB (shortness of breath) Is this a current diagnosis for this admission?: Yes Plan: Patient reports chronic dyspnea with activity. Likely multifactorial secondary to underlying/untreated asthma, morbid obesity, exacerbated by community-acquired pneumonia. Currently asymptomatic and maintaining oxygen saturations on room air while at rest. Further evaluation management as above. (6) Suspected COVID-19 virus infection Is this a current diagnosis for this admission?: Yes Plan: Low suspicion for chlamydia infection, however, test has already been obtained and sent out. Monitor for development of symptoms. Encourage pulmonary toilet. Isolation precautions. - Time Time Spent with patient: 25-34 minutes Medications reviewed and adjusted accordingly: Yes Anticipated Discharge Disposition: Home, Self Care Anticipated Discharge Timeframe: within 24 hours
[2020-06-08] MEDS: AMLODIPINE BESYLATE 10 MG TABLET PO SCH (11:54)
[2020-06-08] MEDS: NITROGLYCERIN 0.4 MG/TAB 25 TAB/BOTTLE SL PRN (14:36)
[2020-06-08] MEDS: CEFTRIAXONE 1 GM/D5W RTU 1 GM/50 ML RTUPB IV SCH (21:20)
[2020-06-08] MEDS: ATORVASTATIN CALCIUM 40 MG TABLET PO SCH (21:20)
[2020-06-09 06:55] LABS: ABSOLUTE BASOPHILS # (AUTO) 0.1 10^3/uL (0.0-0.2); ABSOLUTE EOSINOPHILS # (AUTO) 0.8 10^3/uL (0.0-0.6); ABSOLUTE LYMPHOCYTES (AUTO) 1.9 10^3/uL (0.5-4.7); ABSOLUTE MONOCYTES (AUTO) 0.7 10^3/uL (0.1-1.4); ABSOLUTE NEUT (AUTO) 4.5 10^3/uL (1.7-8.2); EOSINOPHILS % (AUTO) 9.4 % (0-6); HEMATOCRIT 42.3 % (37.9-51.0); HEMOGLOBIN 14.8 g/dL (13.5-17.0); LYMPHOCYTES % (AUTO) 23.8 % (13-45); MEAN CORPUSCULAR HEMOGLOBIN 30.1 pg (27.0-33.4); MEAN CORPUSCULAR HGB CONC 35.1 g/dL (32.0-36.0); MEAN CORPUSCULAR VOLUME 86 fl (80-97); MONOCYTES % (AUTO) 8.8 % (3-13); PLATELET COUNT 186 10^3/uL (150-450); RED BLOOD COUNT 4.92 10^6/uL (4.35-5.55); RED CELL DISTRIBUTION WIDTH 12.8 % (11.5-14.0); TOTAL CELLS COUNTED % (AUTO) 100 %
[2020-06-09 07:22] LABS: ALBUMIN 3.9 g/dL (3.5-5.0); ALKALINE PHOSPHATASE 70 U/L (38-126); ANION GAP 9 (5-19); ASPARTATE AMINO TRANSFERASE 32 U/L (17-59); BILIRUBIN,DIRECT 0.2 mg/dL (0.0-0.4); BILIRUBIN,TOTAL 0.6 mg/dL (0.2-1.3); BLOOD UREA NITROGEN 11 mg/dL (7-20); CALCIUM 9.3 mg/dL (8.4-10.2); CARBON DIOXIDE 26 mmol/L (22-30); CHLORIDE 104 mmol/L (98-107); GLUCOSE 110 mg/dL (75-110); POTASSIUM 4.4 mmol/L (3.6-5.0); TOTAL PROTEIN 6.8 g/dL (6.3-8.2)
[2020-06-09] MEDS: IPRATROPIUM/ALBUTEROL 0.5-2.5 MG/3 ML AMPUL NEB SCH ×3 (08:29→21:20)
[2020-06-09] MEDS: METOPROLOL TARTRATE 25 MG TABLET PO SCH ×2 (08:59→23:12)
[2020-06-09] MEDS: ENOXAPARIN SODIUM INJ 40 MG/0.4 ML DISP.SYRIN SUBCUT SCH (08:59)
[2020-06-09] MEDS: AMLODIPINE BESYLATE 10 MG TABLET PO SCH (08:59)
[2020-06-09] MEDS: AZITHROMYCIN 250 MG TABLET PO SCH (08:59)
[2020-06-09] MEDS: FAMOTIDINE 20 MG TABLET PO SCH ×2 (08:59→23:13)
[2020-06-09] MEDS: DOCUSATE SODIUM 100 MG CAPSULE PO SCH (09:00)
[2020-06-09] MEDS ORDERED: ONDANSETRON HCL INJ/PF 4 MG/2 ML SDV IV PRN (11:00)
[2020-06-09] MEDS ORDERED: PROMETHAZINE HCL INJ 25 MG/1 ML VIAL IV PRN (11:00)
--- NOTE | 2020-06-09 19:33 | PDOC PROGRESS REPORT ---
Subjective Progress Note for:: 06/09/20 Subjective:: DAMIEN THOMSON JR is a 45 year old male Past medical history of testicular cancer status post orchiectomy, questionable asthma, hypertension, morbid obesity who was admitted early this morning for sudden onset dyspnea with questionable pneumonia versus CHF. Patient was seen on evening rounds. He was found lying in bed, comfortably, on room air. He reports that his breathing is much improved; noted to be speaking in full sentences. He continues to have intermittent episodes of dyspnea. He also reports multiple additional episodes of left-sided chest discomfort, occasionally radiating to his neck and shoulder, associated with diaphoresis occurring both at rest and while ambulatory. He had an episode yesterday evening; relieved by nitroglycerin. He reports 2 more episodes today which were much more brief; lasting 2 to 3 seconds, that he did not report to nursing. Patient states these episodes are similar to what prompted him to be evaluated in the emergency department. The most severe lasting several minutes and causing him to need to sit down suddenly due to generalized weakness. He does admit to some anxiety related to his chest discomfort. He denies fever cough, abdominal pain, nausea, vomiting, and diarrhea. Patient has no questions or concerns at this time. No concerns per nursing. Reason For Visit: ACUTE RESPIRATORY FAILUREWITH HYPOXIA,ELEVATED Physical Exam Vital Signs: Temp Pulse Resp BP Pulse Ox 98.3 F 75 16 144/87 H 96 06/09/20 12:00 06/09/20 14:49 06/09/20 14:49 06/09/20 12:00 06/09/20 14:49 Intake & Output 06/08/20 06/09/20 06/10/20 06:59 06:59 06:59 Intake Total 1250 920 Balance 1250 920 Weight 119.9 kg 121.6 kg General appearance: PRESENT: no acute distress, cooperative, obese, well- developed, well-nourished Head exam: PRESENT: atraumatic, normocephalic Eye exam: PRESENT: conjunctiva pink, EOMI, PERRLA. ABSENT: scleral icterus Mouth exam: PRESENT: moist, tongue midline Respiratory exam: PRESENT: clear to auscultation vinod, symmetrical, unlabored. ABSENT: rales, rhonchi, wheezes Cardiovascular exam: PRESENT: RRR, +S1, +S2. ABSENT: diastolic murmur, rubs, systolic murmur Pulses: PRESENT: normal dorsalis pedis pul Vascular exam: PRESENT: normal capillary refill Extremities exam: PRESENT: full ROM. ABSENT: calf tenderness, clubbing, pedal edema Musculoskeletal exam: PRESENT: ambulatory Neurological exam: PRESENT: alert, awake, oriented to person, oriented to place, oriented to time, oriented to situation, CN II-XII grossly intact. ABSENT: motor sensory deficit Psychiatric exam: PRESENT: appropriate affect, normal mood. ABSENT: homicidal ideation, suicidal ideation Skin exam: PRESENT: dry, intact, warm. ABSENT: cyanosis, rash Results Laboratory Results: 06/09/20 06:05 06/09/20 06:05 06/09/20 06/09/20 06:05 06:05 WBC 8.0 RBC 4.92 Hgb 14.8 Hct 42.3 MCV 86 MCH 30.1 MCHC 35.1 RDW 12.8 Plt Count 186 Seg Neutrophils % 57.0 Sodium 138.8 Potassium 4.4 Chloride 104 Carbon Dioxide 26 Anion Gap 9 BUN 11 Creatinine 0.70 Est GFR ( Amer) > 60 Glucose 110 Calcium 9.3 Magnesium 2.2 Total Bilirubin 0.6 AST 32 Alkaline Phosphatase 70 Total Protein 6.8 Albumin 3.9 06/08/20 01:46 Blood Blood Culture (PCR) - Final Staphylococcus Species 06/07/20 06/08/20 06/08/20 20:50 03:37 09:55 Troponin I 0.078 0.042 0.015 NT-Pro-B Natriuret Pep 25 06/08/20 15:00 Troponin I < 0.012 NT-Pro-B Natriuret Pep Impressions: Chest X-Ray 06/07/20 20:13 IMPRESSION: No evidence of acute cardiopulmonary disease. Chest/Abdomen CTA 06/07/20 21:57 IMPRESSION: Dilute contrast bolus. Examination is nondiagnostic for evaluation of pulmonary embolus. Mild fluffy alveolar space disease right lung base, perhaps infectious inflammatory. . Assessment and Plan - Diagnosis (1) Chest pain Qualifiers: Chest pain type: unspecified Qualified Code(s): R07.9 - Chest pain, unspecified Is this a current diagnosis for this admission?: Yes Plan: Patient with multiple episodes of chest pain, some occurring while at rest, described as pressure/tightness to left chest, not reproducible with movement/palpation, radiating to his neck and shoulder, and occasionally associated with diaphoresis and dyspnea. Troponin are trending down; 0.078-> 0.042-> 0.012 EKG no acute changes. Endorses family history of CAD however denies any personal history of CAD but he states that he has been having chronic intermittent chest pain, dyspnea on exertion, orthopnea, paroxysmal nocturnal pillow orthopnea and bilateral lower extremity swelling. Lipid panel overall acceptable. Thyroid panel normal. A1c 5.3%. Admit to telemetry Antiplatelets, beta-blockers, statins, sublingual nitroglycerin as needed. Repeat troponin in the morning. Have reconsulted cardiology service secondary to continued episodes of chest discomfort. (2) Pneumonia Qualifiers: Pneumonia type: due to unspecified organism Laterality: right Lung location: lower lobe of lung Qualified Code(s): J18.9 - Pneumonia, unspecified organism Is this a current diagnosis for this admission?: Yes Plan: Likely community-acquired caused by gram-positives including Streptococcus pneumonia. Denies exposure to anybody with COVID-19 infection. CTA chest revealed small right lower lobe consolidation; possibly infectious. Patient is afebrile, WBCs 15, with complaints of increased shortness of breath and nonproductive cough. COVID pending. Blood cultures 1/4 bottles with gram-positive cocci Sputum cultures pending; has not been obtained. Nonproductive cough. Patient is provided supplemental oxygen as needed maintain saturations greater than 89%. Patient is empirically placed on ceftriaxone and azithromycin. Day #2 Scheduled and as needed nebulizer treatments. Pulmonary toilet is encouraged with incentive spirometer, flutter valve, early ambulation. (3) Hypertensive urgency Is this a current diagnosis for this admission?: Yes Plan: Blood pressures are much improved. Reports intermittent chest pain; possibly related to uncontrolled hypertension. Troponin are trending down; 0.078-> 0.042-> 0.012 EKG no acute changes. Continue home dose amlodipine. Have started metoprolol 25 mg twice daily. Daily aspirin and statin therapy. IV hydralazine as needed. Blood pressure control. Cardiac diet education. (4) Elevated troponin Is this a current diagnosis for this admission?: Yes Plan: Unfortunately very poor historian. Reports intermittent chest pain; possibly related to uncontrolled hypertension. Noted to have blood pressure 166/106 overnight. Troponin are trending down; 0.078-> 0.042-> 0.012 EKG no acute changes. Endorses family history of CAD however denies any personal history of CAD but he states that he has been having chronic intermittent chest pain, dyspnea on exertion, orthopnea, paroxysmal nocturnal pillow orthopnea and bilateral lower extremity swelling. Lipid panel overall acceptable. Thyroid panel normal. A1c 5.3%. Admit to telemetry Antiplatelets, beta-blockers, statins, sublingual nitroglycerin as needed. Repeat troponin in the morning. Have reconsulted cardiology service secondary to continued episodes of chest discomfort. Appropriate for outpatient follow-up. (5) Morbid obesity Is this a current diagnosis for this admission?: Yes Plan: BMI 42.7. Lifestyle modification dietary discretion are advised. (6) SOB (shortness of breath) Is this a current diagnosis for this admission?: Yes Plan: Patient reports chronic dyspnea with activity. Likely multifactorial secondary to underlying/untreated asthma, morbid obesity, exacerbated by community-acquired pneumonia. Maintaining oxygen saturations on room air while at rest. Further evaluation management as above. (7) Suspected COVID-19 virus infection Is this a current diagnosis for this admission?: Yes Plan: Low suspicion for chlamydia infection, however, test has already been obtained and sent out. Monitor for development of symptoms. Encourage pulmonary toilet. Isolation precautions. (8) Dysphasia Is this a current diagnosis for this admission?: Yes Plan: Speech therapy evaluation (9) Testicular cancer Qualifiers: Descendance of testis: unspecified Is this a current diagnosis for this admission?: Yes Plan: Patient reports history of testicular cancer status post orchiectomy. He reports that follow-up ultrasound 3 months ago showed mass to his remaining testicle. He has not had a follow-up. Have asked nursing to obtain the ultrasound report. Inpatient versus outpatient oncology follow-up. - Time Time Spent with patient: 35 or more minutes Medications reviewed and adjusted accordingly: Yes Anticipated Discharge Disposition: Home, Self Care Anticipated Discharge Timeframe: pending cardiology evaluation
[2020-06-09] MEDS: ATORVASTATIN CALCIUM 40 MG TABLET PO SCH (23:12)
[2020-06-09] MEDS: CEFTRIAXONE 1 GM/D5W RTU 1 GM/50 ML RTUPB IV SCH (23:12)
[2020-06-10 05:20] LABS: HEMATOCRIT 40.9 % (37.9-51.0); HEMOGLOBIN 14.3 g/dL (13.5-17.0); MEAN CORPUSCULAR HEMOGLOBIN 30.3 pg (27.0-33.4); MEAN CORPUSCULAR HGB CONC 34.9 g/dL (32.0-36.0); MEAN CORPUSCULAR VOLUME 87 fl (80-97); PLATELET COUNT 198 10^3/uL (150-450); RED BLOOD COUNT 4.73 10^6/uL (4.35-5.55); RED CELL DISTRIBUTION WIDTH 12.9 % (11.5-14.0); WHITE BLOOD COUNT 9.6 10^3/uL (4.0-10.5)
[2020-06-10 05:43] LABS: ANION GAP 12 (5-19); BLOOD UREA NITROGEN 11 mg/dL (7-20); CALCIUM 9.3 mg/dL (8.4-10.2); CARBON DIOXIDE 22 mmol/L (22-30); CHLORIDE 104 mmol/L (98-107); GLUCOSE 101 mg/dL (75-110); POTASSIUM 4.6 mmol/L (3.6-5.0)
[2020-06-10] MEDS: IPRATROPIUM/ALBUTEROL 0.5-2.5 MG/3 ML AMPUL NEB SCH ×3 (09:26→20:15)
[2020-06-10] MEDS: AMLODIPINE BESYLATE 10 MG TABLET PO SCH (10:32)
[2020-06-10] MEDS: AZITHROMYCIN 250 MG TABLET PO SCH (10:32)
[2020-06-10] MEDS: FAMOTIDINE 20 MG TABLET PO SCH ×2 (10:33→21:13)
[2020-06-10] MEDS: DOCUSATE SODIUM 100 MG CAPSULE PO SCH (10:33)
[2020-06-10] MEDS: ENOXAPARIN SODIUM INJ 40 MG/0.4 ML DISP.SYRIN SUBCUT SCH ×2 (10:33→10:37)
[2020-06-10] MEDS: METOPROLOL TARTRATE 25 MG TABLET PO SCH ×2 (10:33→21:13)
--- NOTE | 2020-06-10 13:03 | PDOC PROGRESS REPORT ---
Subjective Progress Note for:: 06/10/20 Subjective:: DAMIEN THOMSON JR is a 45 year old male Past medical history of testicular cancer status post orchiectomy, questionable asthma, hypertension, morbid obesity who was admitted early this morning for sudden onset dyspnea with questionable pneumonia versus CHF. Troponin 0.078>0.012. EKG no ST elevatiomn. BNP 25 He was admitted 06/08/20 for pneumonia. COVID negative. He was started on ceftri and azithro. He continued to have on and off chest pain. He was started on stat ins, metoprolol and aspirin. Cardiology was consulted. He is off oxygen saturating 98% on room air. Reason For Visit: ACUTE RESPIRATORY FAILUREWITH HYPOXIA,ELEVATED Physical Exam Vital Signs: Temp Pulse Resp BP Pulse Ox 97.6 F 71 18 144/91 H 98 06/10/20 11:03 06/10/20 11:03 06/10/20 11:03 06/10/20 11:03 06/10/20 11:03 Intake & Output 06/09/20 06/10/20 06/11/20 06:59 06:59 06:59 Intake Total 1250 920 50 Balance 1250 920 50 Weight 121.6 kg 121.6 kg General appearance: PRESENT: no acute distress Head exam: PRESENT: atraumatic, normocephalic Eye exam: PRESENT: EOMI, PERRLA Ear exam: PRESENT: normal external ear exam Mouth exam: PRESENT: moist Neck exam: PRESENT: full ROM Respiratory exam: PRESENT: clear to auscultation vinod, symmetrical, tachypnea. ABSENT: rales, wheezes Cardiovascular exam: PRESENT: RRR, +S1, +S2 Pulses: PRESENT: +2 pedal pulses bilateral GI/Abdominal exam: PRESENT: normal bowel sounds, soft. ABSENT: rebound, tenderness Extremities exam: PRESENT: full ROM Musculoskeletal exam: PRESENT: full ROM Neurological exam: PRESENT: alert, awake, oriented to person, oriented to place, oriented to time, oriented to situation Psychiatric exam: PRESENT: anxious Skin exam: PRESENT: normal color Results Laboratory Results: 06/10/20 04:24 06/10/20 04:24 06/10/20 06/10/20 04:24 04:24 WBC 9.6 RBC 4.73 Hgb 14.3 Hct 40.9 MCV 87 MCH 30.3 MCHC 34.9 RDW 12.9 Plt Count 198 Sodium 137.5 Potassium 4.6 Chloride 104 Carbon Dioxide 22 Anion Gap 12 BUN 11 Creatinine 0.69 Est GFR ( Amer) > 60 Glucose 101 Calcium 9.3 06/08/20 01:46 Blood Blood Culture (PCR) - Final Staphylococcus Species 06/07/20 06/08/20 06/08/20 20:50 03:37 09:55 Troponin I 0.078 0.042 0.015 NT-Pro-B Natriuret Pep 25 06/08/20 06/10/20 15:00 04:24 Troponin I < 0.012 < 0.012 NT-Pro-B Natriuret Pep Impressions: Chest X-Ray 06/07/20 20:13 IMPRESSION: No evidence of acute cardiopulmonary disease. Chest/Abdomen CTA 06/07/20 21:57 IMPRESSION: Dilute contrast bolus. Examination is nondiagnostic for evaluation of pulmonary embolus. Mild fluffy alveolar space disease right lung base, perhaps infectious inflammatory. . Assessment and Plan - Diagnosis (1) Pneumonia Qualifiers: Pneumonia type: due to unspecified organism Laterality: right Lung location: lower lobe of lung Qualified Code(s): J18.9 - Pneumonia, unspecified organism Is this a current diagnosis for this admission?: Yes Plan: Likely community-acquired caused by gram-positives including Streptococcus pneumonia. Denies exposure to anybody with COVID-19 infection. CTA chest revealed small right lower lobe consolidation; possibly infectious. Patient is afebrile, WBCs 15, with complaints of increased shortness of breath a nd nonproductive cough. COVID negative Blood cultures 1/4 bottles with gram-positive cocci Sputum cultures pending; has not been obtained. Nonproductive cough. Patient is empirically placed on ceftriaxone and azithromycin. Day #3 Scheduled and as needed nebulizer treatments. Pulmonary toilet is encouraged with incentive spirometer, flutter valve, early ambulation. Off o2 with minimal coughing. No SOB or desaturation when I ambulated him stable to go home with oral abx pending cardio recs. (2) Chest pain Qualifiers: Chest pain type: unspecified Qualified Code(s): R07.9 - Chest pain, unspecified Is this a current diagnosis for this admission?: Yes Plan: Patient with multiple episodes of chest pain, some occurring while at rest, described as pressure/tightness to left chest, not reproducible with movement/palpation, radiating to his neck and shoulder, and occasionally associated with diaphoresis and dyspnea. Troponin are trending down; 0.078-> 0.042-> 0.012 EKG no acute changes. Endorses family history of CAD however denies any personal history of CAD but he states that he has been having chronic intermittent chest pain, dyspnea on exertion, orthopnea, paroxysmal nocturnal pillow orthopnea and bilateral lower extremity swelling. patient has a loop recorder for 2 years because he is being worked up for syncope. Lipid panel overall acceptable. Thyroid panel normal. A1c 5.3%. ddx: stable angina or anxiety Antiplatelets, beta-blockers, statins, sublingual nitroglycerin as needed. Have reconsulted cardiology service secondary to continued episodes of chest discomfort. (3) Hypertensive urgency Is this a current diagnosis for this admission?: Yes Plan: Blood pressures are much improved. Reports intermittent chest pain; possibly related to uncontrolled hypertension. Troponin are trending down; 0.078-> 0.042-> 0.012 EKG no acute changes. Continue home dose amlodipine. Have started metoprolol 25 mg twice daily. Daily aspirin and statin therapy. IV hydralazine as needed. Blood pressure control. Cardiac diet education. (4) Elevated troponin Is this a current diagnosis for this admission?: Yes Plan: Unfortunately very poor historian. Reports intermittent chest pain; possibly related to uncontrolled hypertension. Noted to have blood pressure 166/106 overnight. Troponin are trending down; 0.078-> 0.042-> 0.012 EKG no acute changes. Endorses family history of CAD however denies any personal history of CAD but he states that he has been having chronic intermittent chest pain, dyspnea on exertion, orthopnea, paroxysmal nocturnal pillow orthopnea and bilateral lower extremity swelling. Lipid panel overall acceptable. Thyroid panel normal. A1c 5.3%. Admit to telemetry Antiplatelets, beta-blockers, statins, sublingual nitroglycerin as needed. Repeat troponin negative Have reconsulted cardiology service secondary to continued episodes of chest discomfort. Appropriate for outpatient follow-up. (5) Morbid obesity Is this a current diagnosis for this admission?: Yes Plan: BMI 42.7. Lifestyle modification dietary discretion are advised. (6) Dysphasia Is this a current diagnosis for this admission?: Yes Plan: Speech therapy evaluation recommend swallow study and GI consult outpatient as dysphagia maybe esophageal in origin - Time Time Spent with patient: 15-24 minutes Anticipated Discharge Disposition: Home, Self Care Anticipated Discharge Timeframe: within 24 hours
[2020-06-10] MEDS: ATORVASTATIN CALCIUM 40 MG TABLET PO SCH (21:13)
[2020-06-10] MEDS: OXYCODONE-ACETAMINOPHEN 5-325 MG TABLET PO PRN (21:19)
[2020-06-10] MEDS: CEFTRIAXONE 1 GM/D5W RTU 1 GM/50 ML RTUPB IV SCH (21:30)
[2020-06-11] MEDS: IPRATROPIUM/ALBUTEROL 0.5-2.5 MG/3 ML AMPUL NEB SCH ×3 (08:23→21:08)
[2020-06-11] MEDS: METOPROLOL TARTRATE 25 MG TABLET PO SCH ×2 (09:55→21:47)
[2020-06-11] MEDS: AMLODIPINE BESYLATE 10 MG TABLET PO SCH (09:55)
[2020-06-11] MEDS: FAMOTIDINE 20 MG TABLET PO SCH ×2 (09:55→21:47)
[2020-06-11] MEDS: DOCUSATE SODIUM 100 MG CAPSULE PO SCH (09:55)
[2020-06-11] MEDS: ENOXAPARIN SODIUM INJ 40 MG/0.4 ML DISP.SYRIN SUBCUT SCH (10:01)
[2020-06-11] MEDS: AZITHROMYCIN 250 MG TABLET PO SCH (10:18)
[2020-06-11] MEDS: NITROGLYCERIN 0.4 MG/TAB 25 TAB/BOTTLE SL PRN (10:57)
--- NOTE | 2020-06-11 15:03 | RADIOLOGY REPORT (SQ) ---
EXAM DESCRIPTION: BARIUM SWALLOW ESOPHAGUS IMAGES COMPLETED DATE/TIME: 06/11/2020 1:23 pm REASON FOR STUDY: difficulty swallowing COMPARISON: None. TECHNIQUE: Under fluoroscopic guidance, patient ingested effervescent granules followed by thick and thin barium. Fluoroscopic spot images and routine radiographic images acquired and stored on PACS. 12 MM BARIUM TABLET GIVEN: Yes. No significant delay in passage. LIMITATIONS: None. FLUOROSCOPY TIME: FLUORO TIME: 2.1 minutes of fluoroscopy was used. 7 images saved to PACS. FINDINGS: NEUROMUSCULAR COORDINATION OF SWALLOW: Normal. No aspiration. ESOPHAGEAL MOTILITY: Slow and weak primary peristalsis with stasis of barium throughout the esophagus . Tertiary contractions. ESOPHAGEAL MUCOSA: Focal curvilinear filling defect in the proximal esophagus indicating an early eso phageal web. Distal esophageal Schatzki's ring formation. Both areas of narrowing are nonobstructiv e. GASTRO-ESOPHAGEAL JUNCTION: Small sliding hiatal hernia with mild gastroesophageal reflux. 12 mm bar ium tablet passed through the GE junction without delay. NON-GI TRACT STRUCTURES: No significant finding. OTHER: No other significant finding. IMPRESSION: 1. SIGNIFICANT ESOPHAGEAL DYSMOTILITY WITH WEAK PERISTALSIS, TERTIARY CONTRACTIONS, AN D STASIS OF BARIUM THROUGHOUT THE ESOPHAGUS. 2. PROXIMAL ESOPHAGEAL EARLY WEB FORMATION AND DISTAL SCHATZKI'S RING FORMATION, BOTH ARE NONOBSTRUC ANETTE. 3. SMALL SLIDING HIATAL HERNIA WITH MILD GASTROESOPHAGEAL REFLUX. RECOMMENDATION: Endoscopy is recommended for further evaluation. COMMENT: Quality ID [id number]: Final reports for procedures using fluoroscopy that document radiation exp osure indices, or exposure time and number of fluorographic images (if radiation exposure indices are not available) TECHNICAL DOCUMENTATION: JOB ID: [id number] 2010 [employer]- All Rights Reserved Reading location - IP/workstation name: [email or web address] [id number]
--- NOTE | 2020-06-11 16:29 | PDOC CONSULTATION ---
Consultation-Blank Consultation: CARDIOLOGY CONSULTATION by Dr. Flaquita Fritz on 06/11/2020. Patient seen at 3:30 PM. 60 minutes spent on this patient with more than 50% of time spent on direct patient care. REASON FOR CONSULTATION: Patient with chest pain. CONSULT REQUESTING PHYSICIAN: [facility]in Sun[facility] HISTORY OF PRESENT ILLNESS: Patient is a morbidly obese with a history of hypertension, asthma and dysphagia to moderate sized chunks of food, admitted on 06/08/2020 with shortness of breath. The patient states that he was working in the [employer] volunteering at which time he had sudden onset of severe shortness of breath. And there was no wheezing. He denies any cough or sputum production.. His chest CT did not show any pulmonary emboli, but showed atelectasis versus pneumonia in the right lower lobe. The patient has been treated with antibiotics. The patient has been having intermittent episodes of chest pain. He states his chest pain is been going on for a few months. He states that it occurs with exertion and it is in the left front of the chest and it radiates to the left shoulder. The patient did have some episode of chest pain on the way to the emergency room when the EMT care brought him from the [employer] episode of shortness of breath. He states that nitroglycerin relieved the chest pain. He also had some episodes of chest pain at rest. He has not had documented OH in the past. He does have multiple CAD risk factors. He does have morbid obesity. He seems to think he has asthma but has not used inhalers in some time. His cholesterol status is not known. The patient also complains of dysphagia and states that he cannot swallow moderate size of meat. He also has mild GERD symptoms. He also states that he has no chest pain with dysphagia. The chest pain he describes is both at rest and with exertion. And relieved with rest. He states that several years ago he had a stress test which was said to be negative. The patient's initial troponin I was indeterminate/negative but subsequently trended down to normal levels. His EKG shows no acute changes. But the patient does have multiple CAD risk factors and hence warrants a stress test at least. He also needs his physical barium swallow and follow-through to assess the cause of the patient's dysphagia. He has no palpitations or syncope. He states that he has intermittent leg edema but no definite signs or symptoms of congestive heart failure. He has no history of sleep apnea. He has a history of testicular cancer cured by orchiectomy in the past. Past Medical History Cardiac Medical History: Reports: Hypertension Pulmonary Medical History: Reports: Asthma Social History Smoking Status: Former Smoker Family History Family History: Reviewed. There is premature coronary artery disease in his father who had coronary artery disease and OH at the age of 50. Parental Family History Reviewed: Yes Children Family History Reviewed: Yes Sibling(s) Family History Reviewed.: Yes Medication/Allergy Home Medications: Amlodipine Besylate [Norvasc 10 mg Tablet] 10 mg PO DAILY #30 tablet 05/22/20 Allergies/Adverse Reactions: No Known Allergies Allergy (Unverified 06/07/20 20:15) RESUSCITATION status: The patient is a full code. His is a surrogate healthcare decision maker. Current Medications Generic Name Dose Route Start Last Admin Trade Name Freq PRN Reason Stop Dose Admin Acetaminophen 325 mg 06/08/20 02:08 06/11/20 11:54 Tylenol 325 Mg Tablet PO 07/08/20 02:07 325 mg Q4HP PRN Administration FEVER >101 Albuterol/Ipratropium 3 ml 06/08/20 02:08 Duoneb 3 Ml Ampul NEB 07/08/20 02:07 [id number] PRN SHORTNESS OF BREATH Albuterol/Ipratropium 3 ml 06/08/20 08:00 06/11/20 21:08 Duoneb 3 Ml Ampul NEB 07/08/20 07:59 Not Given [id number] NATE Amlodipine Besylate 10 mg 06/08/20 11:00 06/11/20 09:55 Norvasc 10 Mg Tablet PO 07/08/20 10:59 10 mg DAILY NATE Administration Atorvastatin Calcium 40 mg 06/08/20 22:00 06/11/20 21:47 Lipitor 40 Mg Tablet PO 07/08/20 21:59 40 mg QHS NATE Administration Azithromycin 250 mg 06/08/20 10:00 06/11/20 10:18 Zithromax 250 Mg Tablet PO 06/15/20 09:59 250 mg DAILY NATE Administration Docusate Sodium 100 mg 06/08/20 10:00 06/11/20 09:55 Colace 100 Mg Capsule PO 07/08/20 09:59 100 mg DAILY NATE Administration Enoxaparin Sodium 40 mg 06/08/20 10:00 06/11/20 10:01 Lovenox Inj 40 Mg/0.4 Ml Disp.Syrin SUBCUT 07/08/20 09:59 Not Given DAILY NATE Famotidine 20 mg 06/08/20 10:00 06/11/20 21:47 Pepcid 20 Mg Tablet PO 07/08/20 09:59 20 mg Q12 NATE Administration Hydralazine HCl 10 mg 06/08/20 02:04 06/10/20 21:20 Apresoline Inj/Pf 20 Mg/1 Ml Sdv IV 07/08/20 02:03 10 mg Q3HP PRN Administration Give For Sbp > [150] Ceftriaxone Sodium/Dextrose 1 gm in 50 mls @ 100 mls/hr 06/08/20 22:00 06/11/20 21:47 Rocephin Rtu 1 Gm/D5w 50 Ml Premix IV 06/15/20 21:59 100 mls/hr QHS NATE 100 mls/hr Administration Metoprolol Tartrate 25 mg 06/09/20 22:00 06/11/20 21:47 Lopressor 25 Mg Tablet PO 07/09/20 21:59 25 mg Q12 NATE Administration Nitroglycerin 1 tab 06/08/20 02:04 06/11/20 10:57 Nitrostat 0.4 Mg (1/150 Gr) Tabs 25/Bottle SL 07/08/20 02:03 1 tab Q5MP PRN Administration FOR CHEST PAIN Ondansetron HCl 4 mg 06/09/20 11:00 Zofran Inj/Pf 4 Mg/2 Ml Sdv IV 07/08/20 02:07 Q4HP PRN FOR NAUSEA/VOMITING Oxycodone/Acetaminophen 1 tab 06/08/20 02:08 06/11/20 21:48 Percocet 5-325 Mg Tablet PO 06/15/20 02:07 1 tab Q4HP PRN Administration FOR PAIN SCALE 3-5 Pantoprazole Sodium 40 mg 06/12/20 06:[address] Tablet PO 07/12/20 05:59 Q6AM NATE Promethazine HCl 6.25 mg 06/09/20 11:00 Phenergan Inj 25 Mg/1 Ml Vial IV 07/08/20 02:07 Q4HP PRN FOR UNRESOLVED NAUSEA/VOMITING Temazepam 7.5 mg 06/08/20 02:08 Restoril 7.5 Mg Capsule PO 06/15/20 02:07 HSP PRN SLEEP OR INSOMNIA Discontinued Medications Generic Name Dose Route Start Last Admin Trade Name Freq PRN Reason Stop Dose Admin Aspirin 324 mg 06/07/20 21:55 06/07/20 22:44 Aspirin 81 Mg Chewable Tablet PO 06/07/20 21:56 324 mg NOW ONE Administration Azithromycin 500 mg 06/08/20 00:40 06/08/20 01:47 Zithromax Inj 500 Mg Vial IV 06/08/20 00:41 500 mg IVBAG (ED) ONE Administration Ceftriaxone Sodium 1,000 mg 06/08/20 00:40 06/08/20 01:47 Rocephin Inj 1000 Mg Vial IV 06/08/20 00:41 1,000 mg IVBAG (ED) ONE Administration Nitroglycerin/Dextrose 50 mg in 250 mls @ 0 mls/hr 06/07/20 21:56 Ntg Rtu 50 Mg/D5w 250 Ml Iv Premix Bottle IV 07/07/20 21:55 CONTINUOUS PRN THIS MED IS NOT "PRN" Protocol Titrate Lorazepam 0.5 mg 06/07/20 21:55 06/07/20 22:53 Ativan Inj 2 Mg/1 Ml Vial IV 06/07/20 21:56 0.5 mg NOW ONE Administration Metoprolol Tartrate 12.5 mg 06/08/20 10:00 06/09/20 08:59 Lopressor 25 Mg Tablet PO 07/08/20 09:59 12.5 mg Q12 NATE Administration Ondansetron HCl 4 mg 06/08/20 02:08 Zofran Inj/Pf 4 Mg/2 Ml Sdv IV 07/08/20 02:07 Q4HP PRN FOR NAUSEA/VOMITING Promethazine HCl 6.25 mg 06/08/20 02:08 Phenergan Inj 25 Mg/1 Ml Vial IV 07/08/20 02:07 Q4HP PRN FOR NAUSEA/VOMITING REVIEW OF SYSTEMS: HEAD: Denies headache or head injury. Denies dizziness. CONSTITUTIONAL: No history of fever chills or rigors. Denies any generalized fatigue or weakness. EYES: No history of amblyopia, REVIEW OF SYSTEMS.: CONSTITUTIONAL: Denies fever chills or rigors, complains of generalized fatigue and weakness. HEAD: No history of headaches or head injury. EYES: No history of amblyopia or diplopia no history of amaurosis fugax. YEARS: No history of hearing loss no history of tinnitus, no recurrent ear infections. NOSE: No history of hayfever. No nosebleeds. MOUTH: No history of altered taste sensation, no history of ulcers in the mouth no bleeding from gums. THROAT: No history of odynophagia, but has dysphagia to moderate sized chunks of solid food. No recurrent sore throats. SKIN: No history of pruritus, no history of yellowish discoloration of the skin, no skin cancer or psoriasis. NECK: No history of neck pain or neck swelling. No goiter. LUNGS: No history of asthma or COPD. The patient has no history of sleep apnea. He is admitted with sudden onset of shortness of breath. And is being treated for right lower lobe pneum at present he denies any cough or sputum production. onia which is getting better. No history of pulmonary embolism. No history of pleuritic chest pain no hemoptysis. CARDIAC:: No history of coronary artery disease, prior OH, or heart failre.. No history of congestive heart failure. No history of cardiac arrhythmia. No history of PND orthopnea palpitations dizziness or syncope. Chest pain as mentioned earlier suspicion for angina. There is a history of hypertension. METABOLIC: He has morbid obesity present and no knowledge of history of hyperlipidemia. MUSCULOSKELETAL: No history of arthritis present, and no history of collagen vascular disease. RENAL: No hist ory of chronic kidney disease. No symptoms of UTI. No history of hematuria pyuria or dysuria. Past history of renal stones very remotely, with no recurrence. ENDOCRINE: No history off diabetes mellitus. No history of thyroid disease. No history of polydipsia polyuria no history of heat or cold intolerance. GI: Very occasional history of GERD symptoms present. No history of GI bleed, and no history of abdominal pain and and or nausea, or vomiting. No fatty food intolerance. No history of GI bleed. No history of altered bowel movements. No history of cirrhosis or ascites. VISITOR SERVICES REPRESENTATIVE: No history of TIA or CVA. No history of headaches migraines or seizures. PSYCHIATRIC: No history of depression present, no history of anxiety. No history of suicidal or homicidal ideation. VASCULAR: No history of calf or buttock claudication.. No history of DVT. HEMATOLOGICAL no history of bleeding diathesis or clotting disorders. Diplopia, and no for amaurosis fugax. NOSE: No history of deviated nasal septum, no hayfever and no nosebleeds. THROAT: No history of odynophagia dysphagia no history of recurrent sore throats. MOUTH: No altered taste sensation no ulcers in the mouth no bleeding from the gums. SKIN: No history of pruritus no history of allergies discoloration of the skin, no skin cancer or eczema. NECK: No history of neck pain,, no swelling in the neck. No goiter. LUNGS: No history of asthma COPD. No recent symptoms of upper or lower respiratory tract infection. No history of pulmonary embolism or sleep apnea. No cough or sputum production, no wheezing. No acute hemoptysis. Although no pleuritic chest pain the patient did have left sharp left-sided pain which increases on deep breathing. HEART: Denies history of hypertension, no prior history of OH or congestive heart failure or cardiac arrhythmia no history of leg edema no history of PND orthopnea. No history of syncope GI: No history of GERD symptoms. No history of jaundice. No history of fatty food intolerance. Note that the patient's liver function tests are slightly abnormal. There is no history of GI bleed. No abdominal pain. No cirrhosis of the liver. No altered bowel movements. No abdominal pain. Endocrine: No history of diabetes mellitus or thyroid disease. No history of polydipsia polyuria no history of heat or cold intolerance. No history of hirsutism. No history of excessive sweating. RENAL: No history of chronic kidney disease no symptoms of UTI no history of hematuria pyuria or dysuria. Musculoskeletal: Denies arthritis or collagen vascular disease. Metabolic: No history of obesity. No history of gout. Although she has no prior history of hyperlipidemia the patient's lipids are elevated this admission. VISITOR SERVICES REPRESENTATIVE: No history of TIA or CVA no history of headaches migraines or seizures, and no gait imbalance. PSYCHIATRIC: No history of anxiety depression. No suicidal ideation no homicidal ideation. VASCULAR: No history of calf or buttock claudication, and no history of DVT. Hematological: No history of bleeding diathesis or clotting disorders. No history of anemia. PHYSICAL EXAMINATION: Patient is morbidly obese.In no acute distress. Selected Entries 06/11/20 15:39 Temperature 97.4 F Temperature Oral Source Pulse Rate 70 Respiratory 19 Rate Blood Pressure 136/89 H Blood Pressure 104 Mean BP Location Right Arm BP Position Supine O2 Sat by Pulse 99 Oximetry Oxygen Delivery Room Air Method HEAD: Head is atraumatic normocephalic. Eyes: Pupils are equal round regular reactive light accommodation extraocular movements are normal there is no congenital pallor there is no scleral icterus. Ears: External auditory canals are clear, there are no lesions of the pinna. Nose: No deviated nasal septum and no inflammation of the nasal mucous membrane. Mouth: Mucous membranes of mouth are moist tongue is moist there is no ulcers there is no bleeding from the gums. Throat: There is no redness of the oropharynx there is no exudates. Skin: There is no petechia or ecchymosis there is no skin lesions or skin rashes. Neck: Neck is supple there is no JVD carotids equal there is no bruit there is no lymphadenopathy there is no neck stiffness. There is no goiter trachea central lungs: Lungs are clear to auscultation percussion there is no accessory muscles of respiration in use. There is no rhonchi rales or wheezing. There is no chest wall tenderness. HEART: S1-S2 is heard there is no S3 gallop there is no S4 gallop S1 is of normal intensity. There is no rub. The systolic murmur in the left sternal border and apex without radiation. Abdomen: Abdomen is soft nontender there is no paraspinal megaly bowel sounds well heard there is no tender areas of masses. There is no rebound guarding or rigidity. Extremities: Femorals are well felt there is no femoral bruits neck pulses are well felt there is no pedal edema there is no DVT or cellulitis there is no cyanosis or clubbing there is no DVT or cellulitis. There is no calf tenderness. VISITOR SERVICES REPRESENTATIVE: The patient is awake alert oriented 3 with no focal deficits. Psychiatric: The patient judgment and insight are intact and her affect is normal. Labs- Entire Visit 06/07/20 06/07/20 06/07/20 20:50 20:50 20:50 WBC 15.9 H RBC 5.34 Hgb 16.1 Hct 45.9 MCV 86 MCH 30.1 MCHC 35.0 RDW 12.7 Plt Count 243 Lymph % (Auto) 14.6 [place] % (Auto) 7.2 Eos % (Auto) 2.6 Baso % (Auto) 0.9 Absolute Neuts (auto) 11.8 H Absolute Lymphs (auto) 2.3 Absolute Monos (auto) 1.1 Absolute Eos (auto) 0.4 Absolute Basos (auto) 0.1 Seg Neutrophils % 74.7 PT INR APTT Sodium 143.3 Potassium 4.4 Chloride 105 Carbon Dioxide 25 Anion Gap 13 BUN 18 Creatinine 1.18 Est GFR ( Amer) > 60 Est GFR (MDRD) Non-Af > 60 Glucose 85 Hemoglobin A1c % Calcium 10.2 Magnesium 2.4 H Total Bilirubin 0.5 Direct Bilirubin 0.3 Neonat Total Bilirubin Not Reportable Neonat Direct Bilirubin Not Reportable Neonat Indirect Bili Not Reportable AST 37 ALT 24 Alkaline Phosphatase 85 Troponin I 0.078 NT-Pro-B Natriuret Pep 25 Total Protein 8.1 Albumin 4.8 Triglycerides Cholesterol LDL Cholesterol Direct VLDL Cholesterol HDL Cholesterol TSH Free T4 Urine Color Urine Appearance Urine pH Ur Specific [place] Urine Protein Urine Glucose (UA) Urine Ketones Urine Blood Urine Nitrite Urine Bilirubin Urine Urobilinogen Ur Leukocyte Esterase Urine WBC (Auto) Urine RBC (Auto) U Hyaline Cast (Auto) Urine Bacteria (Auto) Amorphous Sediment Auto Urine Mucus (Auto) Urine Ascorbic Acid Urine Opiates Screen Urine Methadone Screen Ur Barbiturates Screen Ur Phencyclidine Scrn Ur Amphetamines Screen U Benzodiazepines Scrn Urine Cocaine Screen U Marijuana (THC) Screen COVID-19 Source COVID-19 ([facility]CO[facility]) 06/07/20 06/07/20 06/07/20 20:50 20:50 23:37 WBC RBC Hgb Hct MCV MCH MCHC RDW Plt Count Lymph % (Auto) [place] % (Auto) Eos % (Auto) Baso % (Auto) Absolute Neuts (auto) Absolute Lymphs (auto) Absolute Monos (auto) Absolute Eos (auto) Absolute Basos (auto) Seg Neutrophils % PT 13.0 INR 0.96 APTT 28.9 Sodium Potassium Chloride Carbon Dioxide Anion Gap BUN Creatinine Est GFR ( Amer) Est GFR (MDRD) Non-Af Glucose Hemoglobin A1c % Calcium Magnesium Total Bilirubin Direct Bilirubin Neonat Total Bilirubin Neonat Direct Bilirubin Neonat Indirect Bili AST ALT Alkaline Phosphatase Troponin I NT-Pro-B Natriuret Pep Total Protein Albumin Triglycerides Cholesterol LDL Cholesterol Direct VLDL Cholesterol HDL Cholesterol TSH 5.78 H Free T4 1.04 Urine Color ANDRADE Urine Appearance CLOUDY Urine pH 5.0 Ur Specific [place] 1.032 Urine Protein 100 H Urine Glucose (UA) NEGATIVE Urine Ketones TRACE H Urine Blood NEGATIVE Urine Nitrite NEGATIVE Urine Bilirubin NEGATIVE Urine Urobilinogen 4.0 H Ur Leukocyte Esterase NEGATIVE Urine WBC (Auto) 4 Urine RBC (Auto) 1 U Hyaline Cast (Auto) 12 Urine Bacteria (Auto) TRACE Amorphous Sediment Auto TRACE Urine Mucus (Auto) MANY Urine Ascorbic Acid NEGATIVE Urine Opiates Screen Urine Methadone Screen Ur Barbiturates Screen Ur Phencyclidine Scrn Ur Amphetamines Screen U Benzodiazepines Scrn Urine Cocaine Screen U Marijuana (THC) Screen COVID-19 Source COVID-19 ([facility]) 06/07/20 06/08/20 06/08/20 23:37 01:55 03:37 WBC RBC Hgb Hct MCV MCH MCHC RDW Plt Count Lymph % (Auto) [place] % (Auto) Eos % (Auto) Baso % (Auto) Absolute Neuts (auto) Absolute Lymphs (auto) Absolute Monos (auto) Absolute Eos (auto) Absolute Basos (auto) Seg Neutrophils % PT INR APTT Sodium Potassium Chloride Carbon Dioxide Anion Gap BUN Creatinine Est GFR ( Amer) Est GFR (MDRD) Non-Af Glucose Hemoglobin A1c % Calcium Magnesium Total Bilirubin Direct Bilirubin Neonat Total Bilirubin Neonat Direct Bilirubin Neonat Indirect Bili AST ALT Alkaline Phosphatase Troponin I 0.042 NT-Pro-B Natriuret Pep Total Protein Albumin Triglycerides Cholesterol LDL Cholesterol Direct VLDL Cholesterol HDL Cholesterol TSH Free T4 Urine Color Urine Appearance Urine pH Ur Specific [place] Urine Protein Urine Glucose (UA) Urine Ketones Urine Blood Urine Nitrite Urine Bilirubin Urine Urobilinogen Ur Leukocyte Esterase Urine WBC (Auto) Urine RBC (Auto) U Hyaline Cast (Auto) Urine Bacteria (Auto) Amorphous Sediment Auto Urine Mucus (Auto) Urine Ascorbic Acid Urine Opiates Screen NEGATIVE Urine Methadone Screen NEGATIVE Ur Barbiturates Screen NEGATIVE Ur Phencyclidine Scrn NEGATIVE Ur Amphetamines Screen NEGATIVE U Benzodiazepines Scrn NEGATIVE Urine Cocaine Screen NEGATIVE U Marijuana (THC) Screen NEGATIVE COVID-19 Source See comment COVID-19 ([facility]CO[facility]) Not Detected 06/08/20 06/08/20 06/08/20 03:37 03:37 03:37 WBC RBC Hgb Hct MCV MCH MCHC RDW Plt Count Lymph % (Auto) [place] % (Auto) Eos % (Auto) Baso % (Auto) Absolute Neuts (auto) Absolute Lymphs (auto) Absolute Monos (auto) Absolute Eos (auto) Absolute Basos (auto) Seg Neutrophils % PT INR APTT Sodium Potassium Chloride Carbon Dioxide Anion Gap BUN Creatinine Est GFR ( Amer) Est GFR (MDRD) Non-Af Glucose Hemoglobin A1c % 5.3 Calcium Magnesium Total Bilirubin Direct Bilirubin Neonat Total Bilirubin Neonat Direct Bilirubin Neonat Indirect Bili AST ALT Alkaline Phosphatase Troponin I NT-Pro-B Natriuret Pep Total Protein Albumin Triglycerides 84 Cholesterol 142.28 LDL Cholesterol Direct 93 VLDL Cholesterol 17.0 HDL Cholesterol 31 L TSH 4.38 Free T4 1.04 Urine Color Urine Appearance Urine pH Ur Specific [place] Urine Protein Urine Glucose (UA) Urine Ketones Urine Blood Urine Nitrite Urine Bilirubin Urine Urobilinogen Ur Leukocyte Esterase Urine WBC (Auto) Urine RBC (Auto) U Hyaline Cast (Auto) Urine Bacteria (Auto) Amorphous Sediment Auto Urine Mucus (Auto) Urine Ascorbic Acid Urine Opiates Screen Urine Methadone Screen Ur Barbiturates Screen Ur Phencyclidine Scrn Ur Amphetamines Screen U Benzodiazepines Scrn Urine Cocaine Screen U Marijuana (THC) Screen COVID-19 Source COVID-19 ([facility]CO[facility]) 06/08/20 06/08/20 06/09/20 09:55 15:00 06:05 WBC 8.0 RBC 4.92 Hgb 14.8 Hct 42.3 MCV 86 MCH 30.1 MCHC 35.1 RDW 12.8 Plt Count 186 Lymph % (Auto) 23.8 [place] % (Auto) 8.8 Eos % (Auto) 9.4 H Baso % (Auto) 1.0 Absolute Neuts (auto) 4.5 Absolute Lymphs (auto) 1.9 Absolute Monos (auto) 0.7 Absolute Eos (auto) 0.8 H Absolute Basos (auto) 0.1 Seg Neutrophils % 57.0 PT INR APTT Sodium Potassium Chloride Carbon Dioxide Anion Gap BUN Creatinine Est GFR ( Amer) Est GFR (MDRD) Non-Af Glucose Hemoglobin A1c % Calcium Magnesium Total Bilirubin Direct Bilirubin Neonat Total Bilirubin Neonat Direct Bilirubin Neonat Indirect Bili AST ALT Alkaline Phosphatase Troponin I 0.015 < 0.012 NT-Pro-B Natriuret Pep Total Protein Albumin Triglycerides Cholesterol LDL Cholesterol Direct VLDL Cholesterol HDL Cholesterol TSH Free T4 Urine Color Urine Appearance Urine pH Ur Specific [place] Urine Protein Urine Glucose (UA) Urine Ketones Urine Blood Urine Nitrite Urine Bilirubin Urine Urobilinogen Ur Leukocyte Esterase Urine WBC (Auto) Urine RBC (Auto) U Hyaline Cast (Auto) Urine Bacteria (Auto) Amorphous Sediment Auto Urine Mucus (Auto) Urine Ascorbic Acid Urine Opiates Screen Urine Methadone Screen Ur Barbiturates Screen Ur Phencyclidine Scrn Ur Amphetamines Screen U Benzodiazepines Scrn Urine Cocaine Screen U Marijuana (THC) Screen COVID-19 Source COVID-19 ([facility]) 06/09/20 06/10/20 06/10/20 06:05 04:24 04:24 WBC 9.6 RBC 4.73 Hgb 14.3 Hct 40.9 MCV 87 MCH 30.3 MCHC 34.9 RDW 12.9 Plt Count 198 Lymph % (Auto) [place] % (Auto) Eos % (Auto) Baso % (Auto) Absolute Neuts (auto) Absolute Lymphs (auto) Absolute Monos (auto) Absolute Eos (auto) Absolute Basos (auto) Seg Neutrophils % PT INR APTT Sodium 138.8 137.5 Potassium 4.4 4.6 Chloride 104 104 Carbon Dioxide 26 22 Anion Gap 9 12 BUN 11 11 Creatinine 0.70 0.69 Est GFR ( Amer) > 60 > 60 Est GFR (MDRD) Non-Af > 60 > 60 Glucose 110 101 Hemoglobin A1c % Calcium 9.3 9.3 Magnesium 2.2 Total Bilirubin 0.6 Direct Bilirubin 0.2 Neonat Total Bilirubin Not Reportable Neonat Direct Bilirubin Not Reportable Neonat Indirect Bili Not Reportable AST 32 ALT 20 Alkaline Phosphatase 70 Troponin I NT-Pro-B Natriuret Pep Total Protein 6.8 Albumin 3.9 Triglycerides Cholesterol LDL Cholesterol Direct VLDL Cholesterol HDL Cholesterol TSH Free T4 Urine Color Urine Appearance Urine pH Ur Specific [place] Urine Protein Urine Glucose (UA) Urine Ketones Urine Blood Urine Nitrite Urine Bilirubin Urine Urobilinogen Ur Leukocyte Esterase Urine WBC (Auto) Urine RBC (Auto) U Hyaline Cast (Auto) Urine Bacteria (Auto) Amorphous Sediment Auto Urine Mucus (Auto) Urine Ascorbic Acid Urine Opiates Screen Urine Methadone Screen Ur Barbiturates Screen Ur Phencyclidine Scrn Ur Amphetamines Screen U Benzodiazepines Scrn Urine Cocaine Screen U Marijuana (THC) Screen COVID-19 Source COVID-19 ([facility]) 06/10/20 04:24 WBC RBC Hgb Hct MCV MCH MCHC RDW Plt Count Lymph % (Auto) [place] % (Auto) Eos % (Auto) Baso % (Auto) Absolute Neuts (auto) Absolute Lymphs (auto) Absolute Monos (auto) Absolute Eos (auto) Absolute Basos (auto) Seg Neutrophils % PT INR APTT Sodium Potassium Chloride Carbon Dioxide Anion Gap BUN Creatinine Est GFR ( Amer) Est GFR (MDRD) Non-Af Glucose Hemoglobin A1c % Calcium Magnesium Total Bilirubin Direct Bilirubin Neonat Total Bilirubin Neonat Direct Bilirubin Neonat Indirect Bili AST ALT Alkaline Phosphatase Troponin I < 0.012 NT-Pro-B Natriuret Pep Total Protein Albumin Triglycerides Cholesterol LDL Cholesterol Direct VLDL Cholesterol HDL Cholesterol TSH Free T4 Urine Color Urine Appearance Urine pH Ur Specific [place] Urine Protein Urine Glucose (UA) Urine Ketones Urine Blood Urine Nitrite Urine Bilirubin Urine Urobilinogen Ur Leukocyte Esterase Urine WBC (Auto) Urine RBC (Auto) U Hyaline Cast (Auto) Urine Bacteria (Auto) Amorphous Sediment Auto Urine Mucus (Auto) Urine Ascorbic Acid Urine Opiates Screen Urine Methadone Screen Ur Barbiturates Screen Ur Phencyclidine Scrn Ur Amphetamines Screen U Benzodiazepines Scrn Urine Cocaine Screen U Marijuana (THC) Screen COVID-19 Source COVID-19 ([facility]COB) Chest X-Ray 06/07/20 20:13 IMPRESSION: No evidence of acute cardiopulmonary disease. Chest/Abdomen CTA 06/07/20 21:57 IMPRESSION: Dilute contrast bolus. Examination is nondiagnostic for evaluation of pulmonary embolus. Mild fluffy alveolar space disease right lung base, perhaps infectious inflammatory. EKG: Sinus tachycardia. Multiple APCs. Otherwise normal EKG. IMPRESSION/RECOMMENDATION: 1. Chest pain suspicious for angina. The patient's coronary artery disease risk factors are namely age, hypertension, and family history of premature coronary artery disease. OH has been ruled out and hence will get a exercise treadmill Cardiolite stress test in the a.m. Procedure has been discussed with the patient he is agreeable. 2. Right lower lobe pneumonia: Resolving. 3. Hypertension: Blood pressure well controlled 4.? Lipid status: We will check lipids in the a.m. 5. Dysphagia: Would recommend individual barium swallow and follow-through to assess the etiology of the patient's dysphagia. 6. History of testicular cancer cured by orchiectomy 7. Morbid obesity. Medications reviewed. Medical regimen management plan discussed with the attending provider. We will schedule the patient for stress test. Medical decision making is of moderate to high complexity. 60 minutes spent on patient more than 50% time spent direct patient care. .
--- NOTE | 2020-06-11 19:10 | PDOC PROGRESS REPORT ---
Subjective Progress Note for:: 06/11/20 Subjective:: DAMIEN THOMSON JR is a 45 year old male Past medical history of testicular cancer status post orchiectomy, questionable asthma, hypertension, morbid obesity who was admitted early this morning for sudden onset dyspnea with questionable pneumonia versus CHF. Troponin 0.078>0.012. EKG no ST elevatiomn. BNP 25 He was admitted 06/08/20 for pneumonia. COVID negative. He was started on ceftri and azithro. He continued to have on and off chest pain. He was started on stat ins, metoprolol and aspirin. Cardiology was consulted. He is off oxygen saturating 98% on room air. 06/11/20. He was seen and examined at bedside. No further episode of chest pain. Still with dysphagia which is a chronic problem for him. Dr. Cooley plans to do a stress test tomorrow. BArium swallow ordered to assess dysphagia. Reason For Visit: ACUTE RESPIRATORY FAILUREWITH HYPOXIA,ELEVATED Physical Exam Vital Signs: Temp Pulse Resp BP Pulse Ox 97.4 F 70 19 136/89 H 99 06/11/20 15:39 06/11/20 15:39 06/11/20 15:39 06/11/20 15:39 06/11/20 15:39 Intake & Output 06/10/20 06/11/20 06/12/20 06:59 06:59 06:59 Intake Total 920 850 340 Balance 920 850 340 Weight 121.6 kg 119 kg Results Laboratory Results: 06/10/20 04:24 06/10/20 04:24 06/08/20 01:46 Blood Blood Culture (PCR) - Final Staphylococcus Species 06/07/20 06/08/20 06/08/20 20:50 03:37 09:55 Troponin I 0.078 0.042 0.015 NT-Pro-B Natriuret Pep 25 06/08/20 06/10/20 15:00 04:24 Troponin I < 0.012 < 0.012 NT-Pro-B Natriuret Pep Impressions: Chest X-Ray 06/07/20 20:13 IMPRESSION: No evidence of acute cardiopulmonary disease. Chest/Abdomen CTA 06/07/20 21:57 IMPRESSION: Dilute contrast bolus. Examination is nondiagnostic for evaluation of pulmonary embolus. Mild fluffy alveolar space disease right lung base, perhaps infectious inflammatory. . Esophagus X-Ray 06/11/20 00:00 IMPRESSION: 1. SIGNIFICANT ESOPHAGEAL DYSMOTILITY WITH WEAK PERISTALSIS, TERTIARY CONTRACTIONS, AND STASIS OF BARIUM THROUGHOUT THE ESOPHAGUS. 2. PROXIMAL ESOPHAGEAL EARLY WEB FORMATION AND DISTAL SCHATZKI'S RING FORM ATION, BOTH ARE NONOBSTRUCTED. 3. SMALL SLIDING HIATAL HERNIA WITH MILD GASTROESOPHAGEAL REFLUX. Assessment and Plan - Diagnosis (1) Pneumonia Qualifiers: Pneumonia type: due to unspecified organism Laterality: right Lung location: lower lobe of lung Qualified Code(s): J18.9 - Pneumonia, unspecified organism Is this a current diagnosis for this admission?: Yes Plan: Likely community-acquired caused by gram-positives including Streptococcus pneumonia. Denies exposure to anybody with COVID-19 infection. CTA chest revealed small right lower lobe consolidation; possibly infectious. Patient is afebrile, WBCs 15, with complaints of increased shortness of breath and nonproductive cough. COVID negative Blood cultures 1/4 bottles with gram-positive cocci Sputum cultures pending; has not been obtained. Nonproductive cough. Patient is empirically placed on ceftriaxone and azithromycin. Day #3 Scheduled and as needed nebulizer treatments. Pulmonary toilet is encouraged with incentive spirometer, flutter valve, early ambulation. Off o2 with minimal coughing. No SOB or desaturation when I ambulated him stable to go home with oral abx . (2) Chest pain Qualifiers: Chest pain type: unspecified Qualified Code(s): R07.9 - Chest pain, unspecified Is this a current diagnosis for this admission?: Yes Plan: Patient with multiple episodes of chest pain, some occurring while at rest, described as pressure/tightness to left chest, not reproducible with movement/palpation, radiating to his neck and shoulder, and occasionally associated with diaphoresis and dyspnea. Troponin are trending down; 0.078-> 0.042-> 0.012 EKG no acute changes. Endorses family history of CAD however denies any personal history of CAD but he states that he has been having chronic intermittent chest pain, dyspnea on exertion, orthopnea, paroxysmal nocturnal pillow orthopnea and bilateral lower extremity swelling. patient has a loop recorder for 2 years because he is being worked up for syncope. Lipid panel overall acceptable. Thyroid panel normal. A1c 5.3%. ddx: stable angina or anxiety Antiplatelets, beta-blockers, statins, sublingual nitroglycerin as needed. Per cardio plan for stress test tomorrow (3) Hypertensive urgency Is this a current diagnosis for this admission?: Yes Plan: Blood pressures are much improved. Reports intermittent chest pain; possibly related to uncontrolled hypertension. Troponin are trending down; 0.078-> 0.042-> 0.012 EKG no acute changes. Continue home dose amlodipine. Have started metoprolol 25 mg twice daily. Daily aspirin and statin therapy. IV hydralazine as needed. Blood pressure control. Cardiac diet education. (4) Elevated troponin Is this a current diagnosis for this admission?: Yes Plan: Unfortunately very poor historian. Reports intermittent chest pain; possibly related to uncontrolled hypertension. Noted to have blood pressure 166/106 overnight. Troponin are trending down; 0.078-> 0.042-> 0.012 EKG no acute changes. Endorses family history of CAD however denies any personal history of CAD but he states that he has been having chronic intermittent chest pain, dyspnea on exertion, orthopnea, paroxysmal nocturnal pillow orthopnea and bilateral lower e xtremity swelling. Lipid panel overall acceptable. Thyroid panel normal. A1c 5.3%. Admit to telemetry Antiplatelets, beta-blockers, statins, sublingual nitroglycerin as needed. Repeat troponin negative Have reconsulted cardiology service secondary to continued episodes of chest discomfort. Appropriate for outpatient follow-up. (5) Morbid obesity Is this a current diagnosis for this admission?: Yes Plan: BMI 42.7. Lifestyle modification dietary discretion are advised. (6) Dysphasia Is this a current diagnosis for this admission?: Yes Plan: Speech therapy evaluation recommend swallow study and GI consult outpatient as dysphagia maybe esophageal in origin - barium swallow ordered - started on protonix - Time Time Spent with patient: 25-34 minutes Anticipated Discharge Disposition: Home, Self Care Anticipated Discharge Timeframe: within 24 hours
[2020-06-11] MEDS: ATORVASTATIN CALCIUM 40 MG TABLET PO SCH (21:47)
[2020-06-11] MEDS: CEFTRIAXONE 1 GM/D5W RTU 1 GM/50 ML RTUPB IV SCH (21:47)
[2020-06-11] MEDS: OXYCODONE-ACETAMINOPHEN 5-325 MG TABLET PO PRN (21:48)
[2020-06-12] MEDS ORDERED: PANTOPRAZOLE SODIUM 40 MG TABLET.DR PO SCH (06:00)
[2020-06-12 07:09] LABS: CHOLESTEROL 106.99 mg/dL (0-200); TRIGLYCERIDES 188 mg/dL (<150)
[2020-06-12 07:19] LABS: DIRECT LDL 51 mg/dL (<100)
[2020-06-12 07:22] LABS: VLDL CHOLESTEROL 37.6 mg/dL (10-31)
[2020-06-12] MEDS: IPRATROPIUM/ALBUTEROL 0.5-2.5 MG/3 ML AMPUL NEB SCH ×2 (08:34→15:01)
[2020-06-12] MEDS: METOPROLOL TARTRATE 25 MG TABLET PO SCH (11:04)
[2020-06-12] MEDS: DOCUSATE SODIUM 100 MG CAPSULE PO SCH (11:05)
[2020-06-12] MEDS: AMLODIPINE BESYLATE 10 MG TABLET PO SCH (11:05)
[2020-06-12] MEDS: AZITHROMYCIN 250 MG TABLET PO SCH (11:05)
[2020-06-12] MEDS: FAMOTIDINE 20 MG TABLET PO SCH (11:05)
[2020-06-12] MEDS: ENOXAPARIN SODIUM INJ 40 MG/0.4 ML DISP.SYRIN SUBCUT SCH (11:07)
[2020-06-12] MEDS ORDERED: REGADENOSON INJ 0.4 MG/5 ML DISP.SYRIN IV ONE (12:06)
[2020-06-12 15:50] VITALS: BP 134/75
[2020-06-12] MEDS ORDERED: INFLUENZA QUAD (6MOS+) 2020-21 VAC 0.5 ML SYR IM ONE (15:54)
--- NOTE | 2020-06-12 15:57 | PDOC DISCHARGE SUMMARY ---
Impression - Admit/DC Date/PCP Admission Date/Primary Care Provider: 06/08/20 01:20 Discharge Date: 06/12/20 - Discharge Diagnosis (1) Pneumonia Is this a current diagnosis for this admission?: Yes (2) Chest pain Is this a current diagnosis for this admission?: Yes (3) Hypertensive urgency Is this a current diagnosis for this admission?: Yes (4) Elevated troponin Is this a current diagnosis for this admission?: Yes (5) Morbid obesity Is this a current diagnosis for this admission?: Yes (6) Dysphasia Is this a current diagnosis for this admission?: Yes - Additional Information Discharge Diet: As Tolerated Discharge Activity: Activity As Tolerated Referrals: MARQUIS PARKER MD [ACTIVE STAFF] - 06/16/20 Prescriptions: Losartan Potassium [Cozaar 25 mg Tablet] 25 mg PO DAILY #30 tablet Isosorbide Mononitrate [Imdur 30 mg Tablet.er] 30 mg PO DAILY 30 Days #30 tab.er.24h Levofloxacin [Levaquin 750 mg Tablet] 750 mg PO DAILY 3 Days #3 tab Atorvastatin Calcium [Lipitor 40 mg Tablet] 40 mg PO QHS 60 Days #60 tablet Pantoprazole Sodium [Protonix [address] Tablet] 40 mg PO Q6AM 60 Days #60 tablet.dr Home Medications: Amlodipine Besylate [Norvasc 10 mg Tablet] 10 mg PO DAILY #30 tablet 05/22/20 Atorvastatin Calcium [Lipitor 40 mg Tablet] 40 mg PO QHS 60 Days #60 tablet 06/12/20 Isosorbide Mononitrate [Imdur 30 mg Tablet.er] 30 mg PO DAILY 30 Days #30 tab.er.24h 06/12/20 Levofloxacin [Levaquin 750 mg Tablet] 750 mg PO DAILY 3 Days #3 tab 06/12/20 Losartan Potassium [Cozaar 25 mg Tablet] 25 mg PO DAILY #30 tablet 06/12/20 Pantoprazole Sodium [Protonix [address] Tablet] 40 mg PO Q6AM 60 Days #60 tablet.dr 06/12/20 History of Present Illiness History of Present Illness: DAMIEN THOMSON JR is a 45 year old male, Past medical history of testicular cancer status post orchiectomy, questionable asthma, hypertension, morbid obesity, CHF, 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 Unfortunately patient is very poor historian he is stating that he was vol unteering for [employer] today and he noted that his shortness of breath was getting worse to the point that he could not talk in complete sentences, and did not get better with rest, he was also having diffuse nonpruritic chest pain. He is stating that he has had shortness of breath, and wheezing for several years and went to the doctor and was given some medication that he does not take anymore, he denies ever having had any PFTs or for asthma, when asked if he has asthma or COPD says he does not know. He is also stating that he has chronic chest pain, dyspnea on exertion, orthopnea and paroxysmal nocturnal dyspnea and pillow orthopnea, lower extremity swelling and he has been using several pillows for the last couple of years, but he denies having any CAD, he does state that he has a strong family history of CAD on mother and father side. In ED a chest x-ray was negative, a follow-up CTA was inconclusive for PE but showed mild fluffy alveolar airspace disease in the right lung base likely infectious. Also noted to have leukocytosis and elevated troponins. Patient denies any exposure to anybody with upper respiratory infection or being exposed to anybody with COVID-19 infection, he is stating that this was his first time that he was volunteering for the [employer], he states that he uses facial covering when required. He denies any fever, chills, nausea, vomiting, abdominal pain, diarrhea, constipation or any urinary symptoms. Hospital Course Hospital Course: COVID test came back negative on 2nd hospital stay. He was started on C eftriaxone and azithro for abx. Cardiology was consulted on the 3rd hospital stay due to recurrent chest pains relieved by nitro. barium swallow ordered as well due to dysphagia. Stress test was negative. Barrium swallow showed esophageal dysmotility, early web formation and schatzki rings. He was started on protonix. His breathing improved with no further episodes of chest pain. He was discharged on the 4th hospital day with referral to gastro, imdur, oral abx. Follow up with PCP and gastro advised. Physical Exam Vital Signs: Temp Pulse Resp BP Pulse Ox 97.4 F 75 16 139/80 H 95 06/12/20 10:00 06/12/20 15:01 06/12/20 15:01 06/12/20 07:35 06/12/20 15:01 Intake & Output 06/11/20 06/12/20 06/13/20 06:59 06:59 06:59 Intake Total 850 390 237 Balance 850 390 237 Weight 119 kg 118.9 kg General appearance: PRESENT: no acute distress, cooperative Head exam: PRESENT: atraumatic, normocephalic Eye exam: PRESENT: EOMI, PERRLA Mouth exam: PRESENT: moist Neck exam: PRESENT: full ROM Respiratory exam: PRESENT: clear to auscultation vinod, symmetrical, unlabored. ABSENT: rales Cardiovascular exam: PRESENT: RRR, +S1, +S2 Pulses: PRESENT: +2 pedal pulses bilateral GI/Abdominal exam: PRESENT: normal bowel sounds, soft. ABSENT: rebound, tenderness Extremities exam: PRESENT: full ROM Musculoskeletal exam: PRESENT: full ROM Neurological exam: PRESENT: alert, awake, oriented to person, oriented to place, oriented to time Psychiatric exam: PRESENT: normal mood Results Laboratory Results: WBC 9.6 10^3/uL (4.0-10.5) 06/10/20 04:24 RBC 4.73 10^6/uL (4.35-5.55) 06/10/20 04:24 Hgb 14.3 g/dL (13.5-17.0) 06/10/20 04:24 Hct 40.9 % (37.9-51.0) 06/10/20 04:24 MCV 87 fl (80-97) 06/10/20 04:24 MCH 30.3 pg (27.0-33.4) 06/10/20 04:24 MCHC 34.9 g/dL (32.0-36.0) 06/10/20 04:24 RDW 12.9 % (11.5-14.0) 06/10/20 04:24 Plt Count 198 10^3/uL (150-450) 06/10/20 04:24 Lymph % (Auto) 23.8 % (13-45) 06/09/20 06:05 [place] % (Auto) 8.8 % (3-13) 06/09/20 06:05 Eos % (Auto) 9.4 % (0-6) H 06/09/20 06:05 Baso % (Auto) 1.0 % (0-2) 06/09/20 06:05 Absolute Neuts (auto) 4.5 10^3/uL (1.7-8.2) 06/09/20 06:05 Absolute Lymphs (auto) 1.9 10^3/uL (0.5-4.7) 06/09/20 06:05 Absolute Monos (auto) 0.7 10^3/uL (0.1-1.4) 06/09/20 06:05 Absolute Eos (auto) 0.8 10^3/uL (0.0-0.6) H 06/09/20 06:05 Absolute Basos (auto) 0.1 10^3/uL (0.0-0.2) 06/09/20 06:05 Seg Neutrophils % 57.0 % (42-78) 06/09/20 06:05 PT 13.0 SEC (11.4-15.4) 06/07/20 20:50 INR 0.96 06/07/20 20:50 APTT 28.9 SEC (23.5-35.8) 06/07/20 20:50 Sodium 137.5 mmol/L (137-145) 06/10/20 04:24 Potassium 4.6 mmol/L (3.6-5.0) 06/10/20 04:24 Chloride 104 mmol/L (98-107) 06/10/20 04:24 Carbon Dioxide 22 mmol/L (22-30) 06/10/20 04:24 Anion Gap 12 (5-19) 06/10/20 04:24 BUN 11 mg/dL (7-20) 06/10/20 04:24 Creatinine 0.69 mg/dL (0.52-1.25) 06/10/20 04:24 Est GFR ( Amer) > 60 (>60) 06/10/20 04:24 Est GFR (MDRD) Non-Af > 60 (>60) 06/10/20 04:24 Glucose 101 mg/dL (75-110) 06/10/20 04:24 Hemoglobin A1c % 5.3 % (4.7-6.0) 06/08/20 03:37 Calcium 9.3 mg/dL (8.4-10.2) 06/10/20 04:24 Magnesium 2.2 mg/dL (1.6-2.3) 06/09/20 06:05 Total Bilirubin 0.6 mg/dL (0.2-1.3) 06/09/20 06:05 Direct Bilirubin 0.2 mg/dL (0.0-0.4) 06/09/20 06:05 Neonat Total Bilirubin Not Reportable 06/09/20 06:05 Neonat Direct Bilirubin Not Reportable 06/09/20 06:05 Neonat Indirect Bili Not Reportable 06/09/20 06:05 AST 32 U/L (17-59) 06/09/20 06:05 ALT 20 U/L (<50) 06/09/20 06:05 Alkaline Phosphatase 70 U/L (38-126) 06/09/20 06:05 Troponin I < 0.012 ng/mL 06/10/20 04:24 NT-Pro-B Natriuret Pep 25 pg/mL (<125) 06/07/20 20:50 Total Protein 6.8 g/dL (6.3-8.2) 06/09/20 06:05 Albumin 3.9 g/dL (3.5-5.0) 06/09/20 06:05 Triglycerides 188 mg/dL (<150) H 06/12/20 05:19 Cholesterol 106.99 mg/dL (0-200) 06/12/20 05:19 LDL Cholesterol Direct 51 mg/dL (<100) 06/12/20 05:19 VLDL Cholesterol 37.6 mg/dL (10-31) H 06/12/20 05:19 HDL Cholesterol 27 mg/dL (>40) L 06/12/20 05:19 TSH 4.38 uIU/mL (0.47-4.68) 06/08/20 03:37 Free T4 1.04 ng/dL (0.78-2.19) 06/08/20 03:37 Urine Color ANDRADE 06/07/20 23:37 Urine Appearance CLOUDY 06/07/20 23:37 Urine pH 5.0 (5.0-9.0) 06/07/20 23:37 Ur Specific [place] 1.032 06/07/20 23:37 Urine Protein 100 mg/dL (NEGATIVE) H 06/07/20 23:37 Urine Glucose (UA) NEGATIVE mg/dL (NEGATIVE) 06/07/20 23:37 Urine Ketones TRACE mg/dL (NEGATIVE) H 06/07/20 23:37 Urine Blood NEGATIVE (NEGATIVE) 06/07/20 23:37 Urine Nitrite NEGATIVE (NEGATIVE) 06/07/20 23:37 Urine Bilirubin NEGATIVE (NEGATIVE) 06/07/20 23:37 Urine Urobilinogen 4.0 mg/dL (<2.0) H 06/07/20 23:37 Ur Leukocyte Esterase NEGATIVE (NEGATIVE) 06/07/20 23:37 Urine WBC (Auto) 4 /HPF 06/07/20 23:37 Urine RBC (Auto) 1 /HPF 06/07/20 23:37 U Hyaline Cast (Auto) 12 /LPF 06/07/20 23:37 Urine Bacteria (Auto) TRACE /HPF 06/07/20 23:37 Amorphous Sediment Auto TRACE /HPF 06/07/20 23:37 Urine Mucus (Auto) MANY /LPF 06/07/20 23:37 Urine Ascorbic Acid NEGATIVE (NEGATIVE) 06/07/20 23:37 Urine Opiates Screen NEGATIVE 06/07/20 23:37 Urine Methadone Screen NEGATIVE 06/07/20 23:37 Ur Barbiturates Screen NEGATIVE 06/07/20 23:37 Ur Phencyclidine Scrn NEGATIVE 06/07/20 23:37 Ur Amphetamines Screen NEGATIVE 06/07/20 23:37 U Benzodiazepines Scrn NEGATIVE 06/07/20 23:37 Urine Cocaine Screen NEGATIVE 06/07/20 23:37 U Marijuana (THC) Screen NEGATIVE 06/07/20 23:37 COVID-19 Source See comment 06/08/20 01:55 COVID-19 (JAYCOB) Not Detected (Not Detect) 06/08/20 01:55 06/07/20 06/08/20 06/08/20 20:50 03:37 09:55 Troponin I 0.078 0.042 0.015 NT-Pro-B Natriuret Pep 25 06/08/20 06/10/20 15:00 04:24 Troponin I < 0.012 < 0.012 NT-Pro-B Natriuret Pep Impressions: Chest X-Ray 06/07/20 20:13 IMPRESSION: No evidence of acute cardiopulmonary disease. Chest/Abdomen CTA 06/07/20 21:57 IMPRESSION: Dilute contrast bolus. Examination is nondiagnostic for evaluation of pulmonary embolus. Mild fluffy alveolar space disease right lung base, perhaps infectious inflammatory. . Esophagus X-Ray 06/11/20 00:00 IMPRESSION: 1. SIGNIFICANT ESOPHAGEAL DYSMOTILITY WITH WEAK PERISTALSIS, TERTIARY CONTRACTIONS, AND STASIS OF BARIUM THROUGHOUT THE ESOPHAGUS. 2. PROXIMAL ESOPHAGEAL EARLY WEB FORMATION AND DISTAL SCHATZKI'S RING FORMATION, BOTH ARE NONOBSTRUCTED. 3. SMALL SLIDING HIATAL HERNIA WITH MILD GASTROESOPHAGEAL REFLUX. Plan Health Concerns: Pneumonia Your examination indicates that you have pneumonia. This is an infection of the lung tissue, usually caused by bacteria or a virus. Symptoms include cough, fever, shaking chills, chest pain, shortness of breath, and coughing up bloody sputum. Treatment for bacterial pneumonia includes rest, antibiotics for 10 to 14 days, increasing your clear liquid intake, a cool mist humidifier at your bedside, and fever medication. Often, a repeat chest X-ray is performed in a few weeks--even if you feel better--to ascertain whether the infection has completely resolved and no underlying lung problem is present. You should call the physician if you develop persistent vomiting, high fever that does not respond to fever medication, increasing shortness of breath, confusion, or lethargy. Also, failure to improve within two to three days is an indication for re-examination. Esophageal Spasm Your diagnosis is esophageal spasm. This is tightness of the muscles of the esophagus. It causes symptoms such as chest pain or food "sticking." It's more common in persons with a hiatal hernia. Esophageal spasms can occur due to nerve damage (neuropathy), acid reflux, inherited esophageal conditions, or just due to old age. Often we x-ray the e sophagus to look for ulcers, inflammation, reflux, or tumors. Usually, antacids or acid-suppressing medicines are used to control possible esophagitis (inflammation of the esophagus due to acid). Nitroglycerin can relax the esophagus when spasms occur. Avoid alcohol, aspirin, caffeine, tobacco, and foods that cause heartburn (such as chocolate). Elevate the head of your bed about four inches. Call the doctor if you develop severe chest pain, inability to swallow fluids, fever, or worsening symptoms. Plan of Treatment: - continue Antibiotics for 3 more days - follow up with gastroenterology Goals: PATIENT LIVES IN ANOTHER STATE. Time Spent: Greater than 30 Minutes Stroke Is this a Stroke Patient?: No Acute Heart Failure Is this a Heart Failure Patient?: No
--- NOTE | 2020-06-12 21:56 | Progress Note ---
Provider Note Provider Note: CARDIOLOGY PROGRESS NOTE by Dr. Flaquita Fritz on 06/12/2020. Subjective: The patient denies any further chest pain discomfort. He underwent a IV Lexiscan Cardiolite stress test this morning. He has no shortness of breath. There is no PND orthopnea or leg edema. There is no arrhythmias seen on the monitor. His his official x-ray shows that there is a problem with his esophagus. PHYSICAL EXAMINATION: The patient morbidly obese. In no acute distress. Selected Entries 06/12/20 06/12/20 15:01 15:49 Temperature 97.4 F Pulse Rate 75 Respiratory 16 Rate Blood Pressure 134/75 H [Upper Arm] O2 Sat by Pulse 95 Oximetry Fraction of 21 Inspired Oxygen (FIO2) HEAD: Head is atraumatic normocephalic. Eyes: Pupils are equal round regular reactive light accommodation extraocular movements are normal there is no congenital pallor there is no scleral icterus. Ears: External auditory canals are clear, there are no lesions of the pinna. Nose: No deviated nasal septum and no inflammation of the nasal mucous membrane. Mouth: Mucous membranes of mouth are moist tongue is moist there is no ulcers there is no bleeding from the gums. Throat: There is no redness of the oropharynx there is no exudates. Skin: There is no petechia or ecchymosis there is no skin lesions or skin rashes. Neck: Neck is supple there is no JVD carotids equal there is no bruit there is no lymphadenopathy there is no neck stiffness. There is no goiter trachea central lungs: Lungs are clear to auscultation percussion there is no accessory muscles of respiration in use. There is no rhonchi rales or wheezing. There is no chest wall tenderness. HEART: S1-S2 is heard there is no S3 gallop there is no S4 gallop S1 is of normal intensity. There is no rub. The systolic murmur in the left sternal border and apex without radiation. Abdomen: Abdomen is soft nontender there is no paraspinal megaly bowel sounds well heard there is no tender areas of masses. There is no rebound guarding or rigidity. Extremities: Femorals are well felt there is no femoral bruits neck pulses are well felt there is no pedal edema there is no DVT or cellulitis there is no cyanosis or clubbing there is no DVT or cellulitis. There is no calf tenderness. LICENSED PSYCHIATRIC TECHNICIAN: The patient is awake alert oriented 3 with no focal deficits. Psychiatric: The patient judgment and insight are intact and her affect is normal. IV Lexiscan Cardiolite stress test: This shows no reversible ischemia and no e vidence of NV/scar. This is been discussed with the patient in detail. Also discussed with attending provider. Labs- All tests 24 hr 06/12/20 05:19 Triglycerides 188 H Cholesterol 106.99 LDL Cholesterol Direct 51 VLDL Cholesterol 37.6 H HDL Cholesterol 27 L Chest X-Ray 06/07/20 20:13 IMPRESSION: No evidence of acute cardiopulmonary disease. Chest/Abdomen CTA 06/07/20 21:57 IMPRESSION: Dilute contrast bolus. Examination is nondiagnostic for evaluation of pulmonary embolus. Mild fluffy alveolar space disease right lung base, perhaps infectious inflammatory. . Esophagus X-Ray 06/11/20 00:00 IMPRESSION: 1. SIGNIFICANT ESOPHAGEAL DYSMOTILITY WITH WEAK PERISTALSIS, TERTIARY CONTRACTIONS, AND STASIS OF BARIUM THROUGHOUT THE ESOPHAGUS. 2. PROXIMAL ESOPHAGEAL EARLY WEB FORMATION AND DISTAL SCHATZKI'S RING FORMATION, BOTH ARE NONOBSTRUCTED. 3. SMALL SLIDING HIATAL HERNIA WITH MILD GASTROESOPHAGEAL REFLUX. IMPRESSION/RECOMMENDATION: 1. Chest pain: This is resolved. The patient is IV Lexiscan Cardiolite stress test showed no reversible ischemia or NV or scar. Would recommend aggressive modification of patient's CAD risk factors. 2. Right lower lobe pneumonia: Resolved. 3. Hypertension: Blood pressure well controlled 4.? Lipid status: We will check lipids in the a.m. 5. Dysphagia: The patient has esophageal web. He also has weak primary peristalsis and also tertiary contractions. He will probably need dilatation of the esophageal web. Would recommend referral to GI specialist post discharge. Continue amlodipine.. Would recommend adding nitrates which will also help the patient's esophageal spasm if present. There is a stasis of barium in the esophagus. Question whether the patient has chronic aspiration. 6. History of testicular cancer cured by orchiectomy 7. Morbid obesity. Medications reviewed. Medical regimen management plan discussed with the attending provider. Patient stress test is negative. The patient did not have a NV by enzymes or by EKG. Hence would recommend discharging the patient on current medication. Medical decision making is of moderate complexity. 50 minutes spent with patient with more than 50% time spent in direct patient care. The patient is desirous of following up with me as an outpatient. Contact numbers given to the patient..
--- NOTE | 2020-06-13 02:02 | DRAGON STRESS TEST REPORT ---
Intravenous Lexiscan Cardiolite stress test using single photon emmision computerized tomography. Date of procedure:06/12/2020.Ordering Provider: Dr.Lakshmi Fritz.Patient's status: Inpatient. Indication: Chest pain. Coronary risk factors: Age, hypertension, and family history of coronary artery disease. Resting EKG: Sinus Rhythm. Within Normal Rhythm. Stress EKG: No changes of ischemia. The patient had no chest pain or discomfort, and there was no arrhythmias seen. Reason for termination: Protocol. Conclusions: Normal EKG and hemodynamic response to IV Lexiscan. Nuclear data: At rest the patient was given 15.38 millicuries of technetium 99m sestamibi injected intravenously. As per protocol rest non gated SPECT images were obtained. Subsequently the patient was given intravenous Lexiscan at a dose of 0.4 mg in 5 mL intravenously, followed by flush with normal saline. Subsequently the stress dose of 48.1 millicuries of technetium 99m sestamibi was injected intravenously. As per protocol stress gated images were obtained. Nuclear interpretation: Review of images showed that all segments of the myocardium had normal perfusion at rest, and normal perfusion post stress with IV Lexiscan. All segments of the myocardium had normal motion, contraction, and thickening by gated study. T. I D. ratio was normal at 1.11.. There is no transient ischemic dilatation of the left ventricle. Computer read rest, and stress left ventricular ejection fraction were 59%, and 59%, respectively. Conclusion: 1. There is no scintigraphic evidence of Lexiscan induced myocardial ischemia. 2. There is no scintigraphic evidence of myocardial infarction/scar. Recommendations: Aggressive risk factor modification, and treating the underlying co- morbidities. MTDD
[2020-06-13] MEDS ORDERED: INFLUENZA QUAD (6MOS+) 2020-21 VAC 0.5 ML SYR IM ONE (08:00)
== END 2020-06-12 16:28 | disposition home or self-care (01) | DRG 194 ==
LOC: ER 18:58 → EH 06-08 01:20 → 3N 06-08 05:46 → 4W 06-10 08:46
PROVIDERS: ADMIT Internal Medicine; ATTEND Internal Medicine
DX: J18.9 Pneumonia, unspecified organism (principal); Z68.41 Body mass index [BMI] 40.0-44.9, adult; Z20.828 Contact with and (suspected) exposure to other viral communicable diseases; E66.01 Morbid (severe) obesity due to excess calories; J45.909 Unspecified asthma, uncomplicated; R79.89 Other specified abnormal findings of blood chemistry; I16.0 Hypertensive urgency; R13.19 Other dysphagia; I11.0 Hypertensive heart disease with heart failure; I50.9 Heart failure, unspecified; Z85.47 Personal history of malignant neoplasm of testis; Z90.79 Acquired absence of other genital organ(s); Z87.891 Personal history of nicotine dependence; Z82.49 Family history of ischemic heart disease and other diseases of the circulatory system; Z23 Encounter for immunization
CPT/HCPCS: 36415; 71045; 71275; 74220; 78452; 80048; 80053; 80061; 80307; 81001; 83036; 83735; 83880; 84439; 84443; 84484; 85025; 85027; 85610; 85730; 87040; 87077; 87150; 87186; 87635; 90686; 93005; 93010; 93017; 94640; 94667; 94799; 96374; 99285; A9500; C9803; J0360; J0456; J0696; J1650; J2060; J2785; Q9969

== ENCOUNTER 2020-06-13 00:32 | Emergency (ER) | payer MEDICAID ==
--- NOTE | 2020-06-13 01:25 | ER Document Report ---
ED Medical Screen (RME) - General Chief Complaint: Breathing Difficulty Stated Complaint: CHEST PAIN Time Seen by Provider: 06/13/20 01:22 Notes: HPI: History obtained from the patient who is a poor historian and from the records. A 45-year-old male who was discharged from the hospital yesterday for multiple issues including pneumonia, dysmotility of the esophagus, chest pain presenting again for shortness of breath states he had 2 episodes at home tonight where he felt like he could not catch his breath. Patient states the shortness of breath has resolved at this point. He does not have chest pain today PHYSICAL EXAMINATION: EKG normal sinus rhythm with no ectopy. Lung sounds are clear to auscultation regular rate and rhythm. Patient does not become significantly dyspneic with speaking I have greeted and performed a rapid initial assessment of this patient. A comprehensive ED assessment and evaluation of the patient, analysis of test results and completion of medical decision making process will be conducted by an additional ED providers. TRAVEL OUTSIDE OF THE [place] 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
[2020-06-13 02:18] LABS: ABSOLUTE BASOPHILS # (AUTO) 0.1 10^3/uL (0.0-0.2); ABSOLUTE EOSINOPHILS # (AUTO) 0.5 10^3/uL (0.0-0.6); ABSOLUTE MONOCYTES (AUTO) 0.9 10^3/uL (0.1-1.4); ABSOLUTE NEUT (AUTO) 9.1 10^3/uL (1.7-8.2); BASOPHILS % (AUTO) 0.8 % (0-2); EOSINOPHILS % (AUTO) 4.3 % (0-6); HEMATOCRIT 42.1 % (37.9-51.0); HEMOGLOBIN 15.1 g/dL (13.5-17.0); LYMPHOCYTES % (AUTO) 16.1 % (13-45); MEAN CORPUSCULAR HEMOGLOBIN 30.5 pg (27.0-33.4); MEAN CORPUSCULAR HGB CONC 35.9 g/dL (32.0-36.0); MEAN CORPUSCULAR VOLUME 85 fl (80-97); MONOCYTES % (AUTO) 6.8 % (3-13); PLATELET COUNT 217 10^3/uL (150-450); RED BLOOD COUNT 4.95 10^6/uL (4.35-5.55); RED CELL DISTRIBUTION WIDTH 12.9 % (11.5-14.0); TOTAL CELLS COUNTED % (AUTO) 100 %; WHITE BLOOD COUNT 12.6 10^3/uL (4.0-10.5)
[2020-06-13 02:28] LABS: ALBUMIN 4.5 g/dL (3.5-5.0); ALKALINE PHOSPHATASE 82 U/L (38-126); ANION GAP 12 (5-19); ASPARTATE AMINO TRANSFERASE 57 U/L (17-59); BILIRUBIN,DIRECT 0.2 mg/dL (0.0-0.4); BILIRUBIN,TOTAL 0.6 mg/dL (0.2-1.3); BLOOD UREA NITROGEN 16 mg/dL (7-20); CALCIUM 10.1 mg/dL (8.4-10.2); CARBON DIOXIDE 25 mmol/L (22-30); CHLORIDE 101 mmol/L (98-107); GLUCOSE 109 mg/dL (75-110); POTASSIUM 4.4 mmol/L (3.6-5.0); TOTAL PROTEIN 7.5 g/dL (6.3-8.2)
--- NOTE | 2020-06-13 02:28 | RADIOLOGY REPORT (SQ) ---
EXAM DESCRIPTION: XR CHEST 1 VIEW COMPLETED DATE/TME: 06/13/2020 01:24 CLINICAL HISTORY: 45 years, Male, SOB COMPARISON: 06/07/2020 chest NUMBER OF VIEWS: 1 TECHNIQUE: Portable chest LIMITATIONS: None. FINDINGS: Heart size is normal. Loop recorder projects over the left hemithorax. Lungs clear. No pneumothorax. Residual contrast in the colon IMPRESSION: No acute cardiopulmonary process copyright 2010 [employer] by [employer]- All Rights Reserved
[2020-06-13] MEDS ORDERED: CETIRIZINE 10 MG TABLET PO ONE (05:37)
[2020-06-13] MEDS ORDERED: ALBUTEROL SULFATE 0.083% NEB 2.5 MG/3 ML AMPUL NEB ONE (05:37)
--- NOTE | 2020-06-13 05:39 | ER Document Report ---
ED General - General Chief Complaint: Breathing Difficulty Stated Complaint: CHEST PAIN Time Seen by Provider: 06/13/20 01:22 Notes: Patient is a 45-year-old male who presents emergency department with chief complaint of chest tightness and shortness of breath that started around 10:00 this evening. Patient states that he has a hard time catching his breath. Patient was seen here in the hospital and was admitted. He had a full cardiac work-up and a stress test, which was normal. Patient is visiting from [place]. He states that he sometimes gets short of breath and normally has an albuterol inhaler, which helps him, but he does not have one with him right now. Patient is planning to going back in the next day or 2. TRAVEL OUTSIDE OF THE [place] 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 Denies recent unintentional weight loss. Denies fever, chills, or sweats. EENT: Denies eye, ear, throat, or mouth pain, discharge, or symptoms. Denies nasal or sinus congestion. CARDIOVASCULAR: See HPI. RESPIRATORY: See HPI. GASTROINTESTINAL: Denies nausea, vomiting, and diarrhea. Denies abdominal pain. Denies constipation. GENITOURINARY: Denies difficulty urinating, burning, blood in urine, urgency or frequency. MUSCULOSKELETAL: Denies neck and back pain. Denies joint pain or swelling. SKIN: Denies rash, itchiness, or lesions HEMATOLOGIC : Denies easy bruising or bleeding. LYMPHATIC: Denies swollen, painful, enlarged glands. NEUROLOGICAL: Denies no numbness or tingling denies weakness. Denies headache. Denies altered mental status. Denies alteration in speech. PSYCHIATRIC: Denies stress, anxiety, alteration in sleep patterns, or depression. All other systems reviewed and negative. Physical Exam - Vital signs Vitals: Temp Pulse Resp BP Pulse Ox 97.7 F 88 16 144/92 H 95 06/13/20 00:54 06/13/20 00:54 06/13/20 00:54 06/13/20 00:54 06/13/20 00:54 - Notes Notes: PHYSICAL EXAMINATION: GENERAL: Appears well, healthy, well-nourished, no acute distress. HEAD: Normocephalic, atraumatic. EYES: PERRL, conjunctiva normal, all extraocular movements intact, sclera nonicteric ENT: Moist mucous membranes. NECK: Supple, no noticeable swelling, redness, rash. Normal range of motion. LUNGS: Very slight expiratory wheezes to upper lobes. CARDIOVASCULAR: S1-S2, regular rate, regular rhythm. Radial pulses 2+, normal. ABDOMEN: Normoactive bowel sounds. Soft, nontender, no guarding, no rebound tenderness, and no masses palpated. EXTREMITIES: Normal strength and range of motion, no pitting or edema. No cyanosis. NEUROLOGICAL: Moves all extremities upon command. Strength 5/5 in all extremities. PSYCH: Normal mood, normal affect. SKIN: Warm, dry. No rash, lesions, ulcerations noted. Normal skin turgor. Course - Re-evaluation Re-evalutation: 06/13/20 05:57 Hematology shows a slight leukocytosis of 12,600. Chemistries are unremarkable. Initial troponin is negative. Chest x-ray is normal. No pneumonia noted. 06/13/20 06:27 Second troponin is negative. Patient states that he feels better after receiving cetirizine and albuterol. Will place him on albuterol inhaler to go home with. I suspect his shortness of breath is due allergies while being here in [place]. - Vital Signs Vital signs: Temp Pulse Resp BP Pulse Ox 97.7 F 88 15 147/100 H 97 06/13/20 00:54 06/13/20 00:54 06/13/20 06:27 06/13/20 06:27 06/13/20 06:27 - Laboratory Result Diagrams: 06/13/20 01:52 06/13/20 01:52 Laboratory results interpreted by me: 06/13/20 01:52 WBC 12.6 H Absolute Neuts (auto) 9.1 H Discharge - Discharge Clinical Impression: Shortness of breath, Chest tightness Condition: Stable Disposition: HOME, SELF-CARE Additional Instructions: You were seen today in the emergency department for shortness of breath and chest tightness. Your work-up is very reassuring. Your cardiac markers were normal. Your chest x-ray was also normal. You are being sent home with an albuterol inhaler and spacer. You can take 1 to 2 puffs every 4-6 hours as needed for shortness of breath. Take cetirizine while you are here in [place]. Follow-up with your primary care provider as planned. Prescriptions: Cetirizine HCl [All Day Allergy] 10 mg PO DAILY #30 tablet
[2020-06-13] MEDS ORDERED: ALBUTEROL SULFATE HFA (90 MCG/PUFF) 8 GM MDI (1 MDI/ER DISP) IH PRN (06:29)
[2020-06-13 06:42] VITALS: BP 147/100
--- NOTE | 2020-06-13 07:53 | EKG REPORT ---
SEVERITY:- NORMAL ECG - SINUS RHYTHM : Confirmed by: Don Samayoa MD 13-Jun-2020 07:51:42
== END 2020-06-13 06:43 | disposition home or self-care (01) ==
LOC: ER 00:32
DX: R06.00 Dyspnea, unspecified (principal); R06.02 Shortness of breath; R07.9 Chest pain, unspecified; I10 Essential (primary) hypertension
CPT/HCPCS: 94640; 99285; 36415; 85025; 80053; 84484; 71045; 93005; 93010; J7613; J3490